=== PATIENT | female | born 1945 | race Caucasian/White ===

== ENCOUNTER 2017-07-28 02:44 | Emergency (ER) | payer MEDICARE, OTHER ==
[~2017-07-28] VITALS: Ht 172.7 cm; Wt 79.6 kg
--- OUTSIDE RECORDS SUMMARY | ~2017-07-28 | XMS | Clinical Summary ---
Demographics + + + | Address | [address] | | | [place] [address] | + + + | Home Phone | | + + + | Preferred Language | Unknown | + + + | Marital Status | Unknown | + + + | Gnosticism Affiliation | Unknown | + + + | Race | Unknown | + + + | Ethnic Group | Unknown | + + + Author + + + | Author | [facility] | | | and Cb | + + + | Organization | [facility] | | | and [place] | + + + | Address | Unknown | + + + | Phone | Unavailable | + + + Care Team Providers + +------+ + | Care Sales Operations Name | Role | Phone | + +------+ + PP | Unavailable | + +------+ + Allergies Not on File Current Medications Not on file Active Problems Not on file Social History + +-------+ +--------+------+ | Tobacco Use | Types | Packs/Day | Years | Date | | | | | Used | | + +-------+ +--------+------+ | Never Assessed | | | | | + +-------+ +--------+------+ + + + | Sex Assigned at | Date Recorded | | | | + + + | Not on file | | + + + Plan of Treatment + + + + + | Health Maintenance | Due Date | Last Done | Comments | + + + + + | Vaccine: | | | | | Dtap/Tdap/Td (1 - | 3 | | | | Tdap) | | | | + + + + + | BREAST CANCER | | | | | SCREENING (MAMM Q2 | 4 | | | | YEARS 50-74) | | | | + + + + + | COLON CANCER | | | | | SCREENING | 4 | | | | (COLONOSCOPY EVERY | | | | | 10 YEARS 50-75) | | | | + + + + + | Vaccine: | | | | | Pneumococcal 65+ | 9 | | | | Low/Medium Risk (1 | | | | | of 2 - PCV13) | | | | + + + + + | Vaccine: Influenza | | | | | (Season Ended) | 8 | | | + + + + + Results Not on filefrom Last 3 Months"
--- OUTSIDE RECORDS SUMMARY | ~2017-07-28 | XMS | Clinical Summary ---
Demographics + + + | Address | [address] | | | [place] [address] | + + + | Home Phone | | + + + | Preferred Language | Unknown | + + + | Marital Status | Unknown | + + + | Jew Affiliation | Unknown | + + + | Race | Unknown | + + + | Ethnic Group | Unknown | + + + Author + + + | Author | [facility] | | | and Cb | + + + | Organization | [facility] | | | and [place] | + + + | Address | Unknown | + + + | Phone | Unavailable | + + + Care Team Providers + +------+ + | Care Exchange Engineer Name | Role | Phone | + [...]
[~2017-07-28 02:44] MED LIST: ASPIRIN81 MG PO; LEVOTHYROXINE100 MCG PO
[2017-07-28] MEDS ORDERED: LOSARTAN POTASS50 MG PO (03:18)
[2017-07-28] MEDS ORDERED: OXYBUTYNIN CHLOR5 MG PO (03:19)
[2017-07-28] MEDS ORDERED: OMEPRAZOLE20 MG PO (03:58)
--- NOTE | 2017-07-29 13:27 | EKG ---
[facility] [address] [place] [address] Signed Sinus rhythm with 1st degree AV block Otherwise normal ECG When compared with ECG of 17-MAY-2016 16:42, No significant change was found Confirmed by ESTELA ALDANA MD ([id number]) on 07/29/2017 1:27:43 PM Electronically Signed By: ESTELA ALDANA MD 07/29/17 1327 PATIENT NAME: TONY LUA JACOB Electrocardiogram DATE OF : 41 PHYSICIAN: ESTELA ALDANA MD REPORT #: [id number] REPORT IS CONFIDENTIAL AND NOT TO BE RELEASED WITHOUT AUTHORIZATION
== END 2017-07-28 04:26 | disposition home or self-care (01) ==
LOC: ED 02:44
DX: R07.9 Chest pain, unspecified (principal); E03.9 Hypothyroidism, unspecified; Z87.891 Personal history of nicotine dependence; Z88.8 Allergy status to other drugs, medicaments and biological substances; Z79.899 Other long term (current) drug therapy; Z79.82 Long term (current) use of aspirin
CPT/HCPCS: 71045; 80053; 83690; 84484; 85025; 93005; 93010; 99284

== ENCOUNTER 2017-07-31 12:17 | Day surgery (SDC) | payer MEDICARE ==
[~2017-07-31] VITALS: Ht 154.9 cm; Wt 82.8 kg
[~2017-07-31 12:17] MED LIST changes: +LOSARTAN POTASS50 MG PO; +OMEPRAZOLE20 MG PO; +OXYBUTYNIN CHLOR5 MG PO
--- NOTE | 2017-07-31 15:23 | NUR ---
07/31/17 1523 Larisa Hernandez 1519-PATIENT ARRIVED TO PACU ON 2L NC O2 SAT 98% PATIENT REACTIVE. OPENS EYES TO VERBAL STIMULI DENIES PAIN OR NAUSEA. RR EVEN. ABDOMEN SOFT.
--- NOTE | 2017-08-01 12:51 | OR ---
[facility] [address] [place], [place] [address] Signed DATE OF OPERATION: 07/31/2017 SURGEON: Edith Jama MD PREOPERATIVE DIAGNOSES: History of diverticulosis, colonoscopy in 2003. POSTOPERATIVE DIAGNOSES: 1. Rectosigmoid polyp x1 (excised). 2. Sigmoid and left-sided diverticulosis. PROCEDURE: Total colonoscopy to cecum with cold morcellation polypectomy x1 and biopsy of sigmoid x1. ANESTHESIA: Intravenous sedation, fentanyl 100 mcg, Versed 6 mg. INDICATION: A 72-year-old white woman, patient of Dr. Knox, known to me from the past having undergone colonoscopy last in 2003, which showed diverticular changes. She is symptom-free at this time, but surveillance colonoscopy has been recommended. She understands the risks of bleeding, infection, perforation related to colonoscopy and wishes to proceed. FINDINGS: The prep was good. Complete colonoscopy was undertaken to the cecum. There were numerous diverticula of the sigmoid, mild inflammation of the mucosa, not much biopsies obtained. There was a small polyp of the rectosigmoid, which was excised with cold morcellation technique. The remaining colon was normal. DESCRIPTION OF PROCEDURE: The patient was brought to the endoscopy suite and placed in lateral decubitus position, given intravenous sedation to the point of slurred speech and nystagmus. Digital rectal examination was normal. An Olympus video colonoscope was passed in the rectum and manipulated throughout the colon. Abdominal wall stabilization was required to allow for passage to the cecum itself. The ileocecal valve and appendiceal orifice were normal. The scope was withdrawn after irrigation undertaken and careful inspection upon withdrawal of scope Electronically Signed By: EDITH JAMA MD 08/01/17 1251 PATIENT NAME: TONY LUA OPERATIVE REPORT DATE OF : 41 REPORT #: [id number] PHYSICIAN: EDITH JAMA MD PCP: RAUDEL KNOX DO REPORT IS CONFIDENTIAL AND NOT TO BE RELEASED WITHOUT AUTHORIZATION [facility] [address] [place], [place] [address] Signed showed no abnormality until the left colon where diverticula were once again seen and the mid sigmoid where edematous change of the mucosa and biopsy was obtained though no sign of colitis proper was noted. The scope was further withdrawn and at the rectosigmoid, a small sessile polyp was noted. This was affirmed as likely adenomatous based on narrow-band imaging. Biopsies of the lesion were undertaken, obliterating it completely. Retroflexed view of the rectum was otherwise normal. The scope was removed, and the patient was taken to the recovery room in good condition. Not mentioned previously was hemorrhoidal change of the rectum on retroflexed view. MD HARRY Ramirez/[place] /[id number] cc: Raudel Knox DO Copies: RAUDEL KNOX DO ~ Electronically Signed By: EDITH JAMA MD 08/01/17 1251 PATIENT NAME: TONY LUA OPERATIVE REPORT DATE OF : 41 REPORT #: [id number] PHYSICIAN: EDITH JAMA MD PCP: RAUDEL KNOX DO REPORT IS CONFIDENTIAL AND NOT TO BE RELEASED WITHOUT AUTHORIZATION
== END 2017-07-31 16:00 | disposition home or self-care (01) ==
LOC: OPS 12:17 → DS 12:17 → OPS 13:00 → DS 13:00 → OPS 16:00
PROVIDERS: Surgery
PROC: 0DBN8ZZ Excision of Sigmoid Colon, Via Natural or Artificial Opening Endoscopic (ICD-10-PCS; principal; 2017-07-31 13:00)
DX: Z12.11 Encounter for screening for malignant neoplasm of colon (principal); D12.7 Benign neoplasm of rectosigmoid junction; K57.30 Diverticulosis of large intestine without perforation or abscess without bleeding; Z88.8 Allergy status to other drugs, medicaments and biological substances; I10 Essential (primary) hypertension; E03.9 Hypothyroidism, unspecified; E66.3 Overweight; Z87.891 Personal history of nicotine dependence; Z98.890 Other specified postprocedural states; Z68.34 Body mass index [BMI] 34.0-34.9, adult
CPT/HCPCS: 88305; 99153; G0500; J2250; J3010; J7120

== ENCOUNTER 2017-09-09 22:24 | Emergency (ER) | payer MEDICARE, OTHER ==
[~2017-09-09] VITALS: Ht 154.9 cm; Wt 82.5 kg
--- NOTE | 2017-09-10 19:36 | EKG ---
[facility] [address] [facility] [place] [address] Signed Sinus bradycardia Otherwise normal ECG When compared with ECG of 28-JUL-2017 02:55, No significant change was found Confirmed by ESTELA ALDANA MD ([id number]) on 09/10/2017 7:35:52 PM Electronically Signed By: ESTELA ALDANA MD 09/10/17 1936 PATIENT NAME: TONY LUA Electrocardiogram DATE OF : 41 PHYSICIAN: ESTELA ALDANA MD REPORT #: [id number] REPORT IS CONFIDENTIAL AND NOT TO BE RELEASED WITHOUT AUTHORIZATION
== END 2017-09-10 01:09 | disposition home or self-care (01) ==
LOC: ED 22:24
DX: K82.8 Other specified diseases of gallbladder (principal); J44.9 Chronic obstructive pulmonary disease, unspecified; Z87.891 Personal history of nicotine dependence; Z88.8 Allergy status to other drugs, medicaments and biological substances; Z79.82 Long term (current) use of aspirin; Z79.899 Other long term (current) drug therapy
CPT/HCPCS: 76705; 80053; 83690; 84484; 85025; 93005; 93010; 96374; 99284; J2405

== ENCOUNTER 2019-11-15 04:50 | Inpatient (IN) | payer MEDICARE, OTHER ==
[~2019-11-15] VITALS: Ht 154.9 cm; Wt 82.1 kg
[~2019-11-15 04:50] MED LIST changes: +MOTRIN IB200 MG PO; +NORCO 5-325 TA1 EACH PO; +TYLENOL325 MG PO
--- NOTE | 2019-11-15 06:59 | NUR ---
0657 PT ARRIVED TO FLOOR AND WAS ABLE TO MOVE OVER TO BED SBA, SHE USED THE RESTROOM AND IS NOW IN BED. SHE IS ORIENTED TO CALL LIGHT AND VS TAKEN. PT DENIES NEEDS AT THIS TIME. LR IS INFUSING AND CALL LIGHT IS CLOSE.
--- NOTE | 2019-11-15 07:30 | NUR ---
PATIENT RESTING IN BED. WHITE BOARD UPTADED. PATIENT REFUSED TO WASH HER HANDS AND FACE. CALL LIGHT WITHIN REACH. NO OTHER NEEDS AT THIS TIME
--- NOTE | 2019-11-15 08:03 | EKG ---
[facility] [address] [facility] [place], [place] [address] Signed Atrial flutter with variable AV block Rightward axis Septal infarct (cited on or before 15-NOV-2019) Abnormal ECG When compared with ECG of 15-NOV-2019 05:08, (Unconfirmed) Serial changes of evolving Septal infarct present Confirmed by YAMEL GALLAGHER MD ([id number]) on 11/15/2019 8:03:00 AM Electronically Signed By: YAMEL GALLAGHER MD 11/15/19 08 PATIENT NAME: TONY LUA Electrocardiogram DATE OF : 41 PHYSICIAN: YAMEL GALLAGHER MD REPORT #: [id number] REPORT IS CONFIDENTIAL AND NOT TO BE RELEASED WITHOUT AUTHORIZATION
--- NOTE | 2019-11-15 08:23 | NUR ---
Pt alert and oriented x4. Pt denies chest pain at this time. Pt reports shortness of breath on exertion. TELE intact; pt in and out of Atrial flutter and NSR. Call light within reach. No needs at this time.
--- NOTE | 2019-11-15 08:57 | NUR ---
CALL LIGHT ANSWERED. PATIENT RESTING IN BED. PATIENT USES THE BATHROOM. ONE PERSON ASSISTING. PATIENT BACKS TO BED. VITAL SIGNS AND I&O DONE. CALL LIGHT WITHIN REACH. NO OTHER NEEDS AT THIS TIME
--- NOTE | 2019-11-15 12:08 | NUR ---
IV saline locked at this time. Standing weight obtained at this time as well.
--- NOTE | 2019-11-15 13:07 | NUR ---
PATIENT SITTING UP IN BED. VITAL SIGNS DONE BY RN. I&O DONE. CALL LIGHT WITHIN REACH. NO OTHER NEEDS AT THIS TIME
--- NOTE | 2019-11-15 13:50 | NUR ---
Pt sleeping, respirations are even and non labored. Pt has no distress noted. Tele intact; trending Atrial flutter, rate in the 70's. Personal supplies within reach.
[2019-11-15] MEDS ORDERED: LEVOTHYROXINE137 MCG PO (17:06)
--- NOTE | 2019-11-15 17:10 | NUR ---
PATIENT SITTING UP IN BED. VITAL SIGNS AND I&O DONE. CALL LIGHT WITHIN REACH. NO OTHER NEEDS AT THIS TIME
--- NOTE | 2019-11-15 17:23 | NUR ---
Pt resting in bed, respirations are even and non labored. Pt has no distress noted. Water filled. Personal supplies and call light within reach.
--- NOTE | 2019-11-15 18:18 | NUR ---
Pt A&OX4. SBA to BR. SOB with exertion. Tylenol in use for pain/elevated temp. Patient calls appropriately. Tele; trending in atrial flutter. Cardizem po in use.
--- NOTE | 2019-11-15 19:02 | NUR ---
SHIFT REPORT RECEIVED FROM DAYSAZFT JALIL HUYNH AT BEDSIDE. PT RESTING IN BED WITH EYES CLOSED. RR EVEN AND UNLABORED, NO DISTRESS NOTED. TELE#[address], RHYTHM A FLUTTER. CALL LIGHT IN REACH. WILL MONITOR.
--- NOTE | 2019-11-15 21:15 | NUR ---
ASSESSMENT COMPLETE, NO SCHEDULED MEDS AT THIS TIME. VSS, TELE#[address] RHYTHM A FLUTTER, PT DENIES CHEST PAIN BUT REPORTS SOB AT REST. PER PT, HX COPD, O2 SAT UPPER 90'S ON RA. LUNG SOUNDS CLEAR. NO DISTRESS, PT ABLE TO MAINTAIN CONVERSATION WITH STAFF. PT DENIES PAIN AND NAUSEA. IV SITE FLUSHED, WNL. I&O'S CHARTED. PT DENIES FURTHER NEEDS AT THIS TIME. CALL LIGHT IN REACH.
--- NOTE | 2019-11-15 22:26 | NUR ---
PT RESTING IN BED, RECENTLY RETURNED TO BED FROM BATHROOM. 100MLS OUTPUT NOTED. NO FURTHER NEEDS, CALL LIGHT IN REACH. PT APPEARS IN GOOD SPIRITS.
--- NOTE | 2019-11-15 23:41 | EKG ---
[facility] [address] [facility] [place] [address] Signed Atrial flutter with variable AV block Septal infarct (cited on or before 15-NOV-2019) Abnormal ECG When compared with ECG of 15-NOV-2019 05:10, Nonspecific T wave abnormality now evident in Inferior leads Confirmed by YAMEL GALLAGHER MD ([id number]) on 11/15/2019 11:41:34 PM Electronically Signed By: YAMEL GALLAGHER MD 11/15/19 2341 PATIENT NAME: TONY LUA Electrocardiogram DATE OF : 41 PHYSICIAN: YAMEL GALLAGHER MD REPORT #: [id number] REPORT IS CONFIDENTIAL AND NOT TO BE RELEASED WITHOUT AUTHORIZATION
--- NOTE | 2019-11-16 00:55 | NUR ---
VS AND I&O'S DONE. SCHEDULED CARDIAC MED GIVEN (SEE EMAR). NO FURTHER NEEDS AT THIS TIME, CALL LIGHT IN REACH.
--- NOTE | 2019-11-16 03:10 | NUR ---
PT RESTING IN BED WITH EYES CLOSED. RESPIRATIONS EVENA DN UNLABORED. TELE#4 INTACT, RHYTHM CONTINUES TO TREND A FLUTTER. NO DISTRESS NOTED, PT APPEARS COMFORTABLE. CALL LIGHT IN REACH.
--- NOTE | 2019-11-16 06:21 | NUR ---
PT HAD AN UNEVENTFUL NIGHT, SLEPT FOR MOST OF SHIFT. A/OX4, INDEPENDENT IN ROOM AND CALLS APPROPERIATELY. TELE#[address], TRENDING A FLUTTER. NO CHEST PAIN REPORTED, SOB ON EXERTION. VOIDING QS. CLEAR LIQUID DIET, NO NAUSEA REPORTED.
--- NOTE | 2019-11-16 06:55 | NUR ---
CCU CALLED ABOUT PT'S HEART RATE JUMPING TO 130'S. UPON ENTERING THE ROOM PT WAS STRAIGHTENING OUT HER BED AND STATES SHE JUST USED THE BATHROOM. TEODORO JIMENES IS IN ROOM WITH HER AT THIS TIME. CALL LIGHT IS CLOSE.
--- NOTE | 2019-11-16 06:57 | NUR ---
JHOANA SENT TO DR GALLAGHER REGARDING PT'S THYROID MEDICATION SHE TAKES ATHOME. ASSESSMENT COMPLETE, NO NEW CAHNGES. VSS, SCHEDULED AM CARDIAC MED GIVEN ALONG WITH PRN TYLENOL FOR HEADACHE. PT DENIES CHEST PAIN. CALL LIGHT IN REACH.
--- NOTE | 2019-11-16 07:35 | NUR ---
Pt sitting up in bed, alert and oriented x4. Pt denies pain at this time. Personal supplies and call light within reach.
--- NOTE | 2019-11-16 07:45 | NUR ---
PATIENT RESTING IN BED. WHITE BOARD UPDATED. PATIENT REFUSED TO TAKE A SHOWER TODAY. CALL LIGHT WITHIN REACH. NO OTHER NEEDS AT THIS TIME
--- NOTE | 2019-11-16 10:42 | NUR ---
PATIENT RESTING WITH EYES CLOSED, DAUGHTER IN TO VISIT. PATIENT NOW AWAKE AND SITTING AT SIDE OF BED. BREAKFATS AT BEDSIDE.NO URINE OUTPUT YET, WILL NOTIFY RN. CALL LIGHT IN REACH
--- NOTE | 2019-11-16 13:29 | NUR ---
PATIENT RESTING IN BED. DAUGHTER IN ROOM. VITAL SIGNS AND I&O DONE. CALL LIGHT WITHIN REACH. NO OTHER NEEDS AT THIS TIME
--- NOTE | 2019-11-16 15:12 | NUR ---
Pt resting in bed, eyes closed, respirations even and non labored. TELE remains intact; trending atrial flutter, rate 60-70 bpm.
--- NOTE | 2019-11-16 17:05 | NUR ---
PATIENT SITTING UP IN BED. VITAL SIGNS AND I&O DONE. SETS UP TABLE FOR DINNER. CALL LIGHT WITHIN REACH. NO OTHER NEEDS AT THIS TIME
--- NOTE | 2019-11-16 19:10 | NUR ---
SHIFT REPORT RECEIVED FROM DAYSAZFT JALIL HUYNH AT BEDSIDE. PT AWAKE AND RESTING IN BED, DENIES NEEDS. CALL LIGHT IN REACH. BOARD UPDATED.
--- NOTE | 2019-11-16 21:21 | NUR ---
ASSESMENT COMPLETE, SCHEDULED CARDIAC MED GIVEN (SEE EMAR). VS AND I&O'S DONE. PT A/OX4 AND INDEPENDENT IN ROOM. DENIES PAIN AND NAUSEA. ALSO DENIES CHEST PAIN, REPORTS SOB WITH EXERTION. LUNG SOUNDS CLEAR, ON RA. NO FURTHER NEEDS, CALL LIGHT IN REACH.
--- NOTE | 2019-11-16 23:15 | NUR ---
PT RESTING IN BED, DENIES FURTHER NEEDS. CALL LIGHT IN REACH. RR EVEN AND UNLABORED.
--- NOTE | 2019-11-17 02:45 | NUR ---
PT RESTING IN BED WITH EYES CLOSED, RR EVEN AND UNLABORED. NO DISTRESS NOTED. CALL LIGHT IN REACH.
--- NOTE | 2019-11-17 04:14 | NUR ---
ASSESSMENT COMPLETE, NO NEW CHANGES OR CONCERNS. PT AWAKE AND RESTING IN BED HOB ELEVATED. LUNG SOUNDS CLEAR, O2 SAT 94% RA. HR 70, PT DENIES CHEST PAIN. CALL LIGHT IN REACH.
--- NOTE | 2019-11-17 04:41 | NUR ---
PT HAD AN UNEVENTFUL NIGHT, SLEPT FOR MOST OF SHIFT. VSS, INDEPENDENT IN ROOM. 2GM SODIUM DIET, TOLERATING WELL. NO NAUSEA REPORTED. PAIN MEDS NOT NEEDED THIS SHIFT. VOIDING QS, NO BM. SL, IV SITE WNL.
--- NOTE | 2019-11-17 05:22 | NUR ---
VSS AND I&O'S DONE. DAILY WEIGHT ALSO COMPLETE. NO FURTHER NEEDS, CALL LIGHT IN REACH.
--- NOTE | 2019-11-17 05:42 | NUR ---
VITALS, I&OS AND WEIGHT DONE AND CHARTED. FRESH ICE WATER GIVEN. GARBAGES EMPTIED. BEDSIDE TABLE AND CALL LIGHT IN REACH.
--- NOTE | 2019-11-17 07:43 | NUR ---
Pt resting in bed, eyes closed, respirations even and non labored. Pt has no distress noted. Personal supplies and call light within reach.
--- NOTE | 2019-11-17 09:17 | NUR ---
PATIENT UP TO SHOWER, IND. NEW GOWN PROVIDED. LINENS CHANGED. KIRK CARE, ORAL CARE, SKIN CARE DONE. PATIENT BACK TO BED, IND. CALL LIGHT IN REACH. NO FURTHER NEEDS AT THIS TIME.
--- NOTE | 2019-11-17 10:43 | NUR ---
PT ALERT, ORIENTED AND SITTING ON SIDE OF BED. PT SAID THIS IS SOMETHING NEW THAT TO HER KNOWLEDGE SHE HAS NOT HAD BEFORE. PT WENT ON THE SHARE WITH ME THAT SHE HAS LOST BOTH HER AND SON IN THE LAST FEW MONTHS. PT APPEARS RATHER STOIC SHE SHARED HER STORY. GAVE COMFORT, PT REQUESTED PRAYER. WILL FOLLOW NEEDED. SHARED WITH DR ALDANA INFO REGARDING HER LOSSES
--- NOTE | 2019-11-17 10:56 | NUR ---
PATIENT IN BED RESTING WITH EYES CLOSED. CALL LIGHT IN REACH. NO FURTHER NEEDS AT THIS TIME.
--- NOTE | 2019-11-17 14:12 | NUR ---
PATIENT SITTING UP IN BED, DAUGHTER IN ROOM. PATIENT COMPLAINED OF IV SIGHT BEING TENDER AND PUFFY, RN NOTIFIED. CALL LIGHT IN REACH. NO FURTHER NEEDS AT THIS TIME.
--- NOTE | 2019-11-17 14:15 | NUR ---
Spoke with Bibi and daughter Enma. Pt has been having increased symptoms of sob. LIves in a trilevel home with her daughter Lizbeth, who is out of town for the week. Pt does not use any DME. Denies issues with SDOH, aware of [employer], but states she would not qualify. Daughters are very attentive and pt states they will assist her with any needs. Pt is aware her trilevel home is not practical, but does not want to move. Daughter states if she reaches a point where she can not go up or down the stairs she will move in with them.
--- NOTE | 2019-11-17 15:29 | NUR ---
NEW IV PLACED LEFT WRIST IV SITE INFILTRATED. PT TOLERTED WELL.
--- NOTE | 2019-11-17 17:48 | NUR ---
CALENDER LET OFF HELPER reported pt's heart rate is elevated and pt reports she feels shaky. In to asssess pt; heart rate auscultated at 120bpm and sounds irregular. Pt reports she was eating her dinner and started feeling more short of breath and a bit shaky. Oxygen saturation is 94% on room air. Pt denies chest pain. Dr. Landon notified. Order obtained from Dr. Landon to check vitals again in one hour. Pt recently had a duoneb as well. No acute needs, patient able to carry on with a long conversation with this RN. Call light wtthin jericho.
--- NOTE | 2019-11-17 19:15 | NUR ---
RECEIVED REPORT FROM JALIL HUYNH. pt RESTING IN BED. NO REQUESTS AT THIS TIME. WHITEBOARD UPDATED. CALL LIGHT WITHIN REACH.
--- NOTE | 2019-11-17 19:29 | NUR ---
NOTED TELE 4 HR OF 130. IN TO ASSESS. pt RESTING IN BED. REPORTED SHE HAD JUST AMBULATED TO THE BATHROOM AND BACK TO BED. HR NOW 110'S. pt RESTING IN BED. CALL LIGHT WITHIN REACH.
--- NOTE | 2019-11-17 21:45 | NUR ---
IN TO DO ASSESSMENT AND MEDICATIONS. DISCUSSED THE PLAN FOR THE NIGHT. DENIES PAIN AND SOB AT THIS TIME. ASSESSMENT DONE. MEDICATION GIVEN (SEE MAR). NO FURTHER REQUESTS AT THIS TIME. CALL LIGHT WITHIN REACH.
--- NOTE | 2019-11-17 23:37 | NUR ---
ROUNDED ON pt. RESTING WITH EYES CLOSED, RESPIRATIONS REGULAR AND UNLABORED. CALL LIGHT WITHIN REACH.
--- NOTE | 2019-11-18 01:55 | NUR ---
NOTED ALARM ON TELE MONITOR. ROUNDED ON pt. RESTING IN BED WITH EYES CLOSED, ON RIGHT SIDE. RESPIRATIONS REGULAR AND UNLABORED. CALL LIGHT WITHIN REACH. HR CONTINUES TO FLUCTUATE BETWEEN 80'S AND 140'S. HIGH RATE IS NOT SUSTAINED.
--- NOTE | 2019-11-18 03:51 | NUR ---
ROUNDED ON pt. RESTING IN BED WITH EYES CLOSED, RESPIRATIONS REGULAR AND UNLABORED. CALL LIGHT WITHIN REACH. TELE IN A FLUTTER HR 80.
--- NOTE | 2019-11-18 05:40 | NUR ---
pt AWAKE UP TO VOID AND BACK TO BED INDEPENDENT. DAILY WEIGHT, VITALS AND I&O RECORDED. pt REPORTED "I FEEL BETTER TODAY THAN I HAVE SINCE I GOT HERE." ASSESSMENT DONE. MEDICAITON GIVEN (SEE MAR). NO FURTHER REQUESTS AT THIS TIME. CALL LIGHT WITHIN REACH.
--- NOTE | 2019-11-18 07:54 | NUR ---
Pt awake, alert and oriented x4. Pt has no distress. Personal supplies and call light within reach.
--- NOTE | 2019-11-18 08:36 | NUR ---
PATIENT AWAKE AND EATING BREAKFAST NO FURTHER NEEDS AT THIS TIME.
--- NOTE | 2019-11-18 09:15 | NUR ---
PATIENT VITALS SIGNS AND I&O'S DOCUMENTED. NO FURTHER NEEDS AT THIS TIME.
--- NOTE | 2019-11-18 11:09 | NUR ---
PATIENT HAD AM CARE DONE. PATIENT WASHED FACE, AND ORAL CARE IS COMPLETED. NO FURTHER NEEDS AT THIS TIME.
[2019-11-18] MEDS ORDERED: DILTIAZEM 24HR240 M1 PO (11:29)
[2019-11-18] MEDS ORDERED: PREDNISONE20 MG PO (11:31)
[2019-11-18] MEDS ORDERED: WARFARIN SODIUM5 MG PO (11:39)
--- NOTE | 2019-11-18 12:08 | NUR ---
DISCHARGE VITALS DOCUMENTED.
--- NOTE | 2019-11-18 12:15 | NUR ---
PT READY FOR DISCHARGE. DISCHARGE INSTRUCTIONS REVIEWED WITH PT. PT VERBALIZES UNDERSTANDING. PT VERBALIZES UNDERSTANDING OF WARFARIN, FOLLOW UP LABS AND FOLLOW UP APPOINTMENT WITH DR. HARTLEY. PT WAITING TO TALK WITH PHARMACIST. NO ADDITIONAL REQUESTS OR COMPLAINTS AT THIS TIME. PT STATES DAUGHTER/RIDE WILL ARRIVE AT 1300. CALL LIGHT WITHIN REACH. BED RAILS UP.
[2019-11-18] MEDS ORDERED: ELIQUIS5 MG PO (13:03)
--- NOTE | 2019-11-18 13:13 | NUR ---
PT REPORTS HAVING CONCERNS ABOUT TAKING WARFARIN AT THIS TIME, SHE REQUESTS TO HAVE THE ELIQUIS ORDER, SHE REFERED TO [facility], EDUCATION PROVIDED, BOONE FROM PHARMACY TO COME RE-ADDRESS HER CONCERNS AND COMPARISON OF THE TWO MEDICATIONS, WITH PT AND HER DAUGHTER.
--- NOTE | 2019-11-18 13:30 | NUR ---
PT STATES SHE DOES NOT WANT TO TAKE WARFARIN AFTER TALKING WITH PHARMACIST. MD PLACES ORDER FOR ELEQUIS. PHARMACIST TO BEDSIDE TO TALK WITH PT AGAIN ABOUT ELEQUIS. NEW DISCHARGE INSTRUCTIONS GIVEN TO AND REVIEWED WITH PT. PT VERBALIZES UNDERSTANDING AND STATES SHE IS HAPPY WITH THE NEW PLAN. PT CONTINUES TO DECLINE NEBULIZER TREATEMENTS. PT REMINDED SHE CAN ALWAYS CHANGE HER MIND AND TO BE SURE TO GO TO HER FOLLOW UP APPOINTMENTS. PT VERBALIZES UNDERSTANDING OF MEDICATION CHANGES, FOLLOW UP APPOINTMENTS, AND DISCHARGE INSTRUCTIONS. PT DRESSES SELF. VITALS TAKEN. IV DC'D PER PROTOCOL. PT TRANSFERES SELF TO WHEELCHAIR. DAUGHTER PRESENET FOR REVIEW OF NEW MEDICATIONS AND DISCHARGE INSTRUCTIONS. PT WHEELED FROM UNIT. NO ADDITIONAL CONERNS OR REQUESTS.
--- NOTE | 2019-11-18 14:25 | NUR ---
PT SITTING UP IN BED, ALERT, ORIENTED AND VISITING WITH HER DAUGHTER THAT IS HERE TO TAKE PT HOME FOLLOWING DC. PT WAITING FOR PHARMACY, AND THANKED ME FOR VISITING. GAVE BLESSZAFAR
== END 2019-11-18 13:45 | disposition home or self-care (01) | DRG 309 ==
LOC: ED 04:50 → MS 04:52
PROVIDERS: ADMIT Internal Medicine
DX: I48.92 Unspecified atrial flutter (principal); J44.1 Chronic obstructive pulmonary disease with (acute) exacerbation; Z20.828 Contact with and (suspected) exposure to other viral communicable diseases; I10 Essential (primary) hypertension; N32.81 Overactive bladder; E89.0 Postprocedural hypothyroidism; I27.20 Pulmonary hypertension, unspecified; I51.7 Cardiomegaly; Z79.899 Other long term (current) drug therapy; Z79.82 Long term (current) use of aspirin; Z85.850 Personal history of malignant neoplasm of thyroid; Z87.891 Personal history of nicotine dependence; Z88.8 Allergy status to other drugs, medicaments and biological substances; Z88.5 Allergy status to narcotic agent
CPT/HCPCS: 36415; 71045; 80048; 80053; 83735; 83880; 84100; 84439; 84443; 84484; 85025; 85610; 93005; 93010; 93306; 94640; 94667; 94668; 96374; 99285-25; C9803; J1650; J2930; J7121

== ENCOUNTER 2020-01-21 10:21 | Emergency (ER) | payer MEDICARE ==
[~2020-01-21] VITALS: Ht 154.9 cm; Wt 82.1 kg
[~2020-01-21 10:21] MED LIST changes: +DILTIAZEM 24HR240 M1 PO; +ELIQUIS5 MG PO; +LEVOTHYROXINE137 MCG PO; +PREDNISONE20 MG PO; +WARFARIN SODIUM5 MG PO
== END 2020-01-21 11:15 | disposition home or self-care (01) ==
LOC: ED 10:21
DX: S80.12XA Contusion of left lower leg, initial encounter (principal); W01.198A Fall on same level from slipping, tripping and stumbling with subsequent striking against other object, initial encounter; E03.9 Hypothyroidism, unspecified; J44.9 Chronic obstructive pulmonary disease, unspecified; Z87.891 Personal history of nicotine dependence; Z88.8 Allergy status to other drugs, medicaments and biological substances; Z88.5 Allergy status to narcotic agent; Z79.899 Other long term (current) drug therapy; Z79.52 Long term (current) use of systemic steroids
CPT/HCPCS: 73590; 99283-25

== ENCOUNTER 2020-04-20 22:45 | Emergency (ER) | payer MEDICARE ==
[~2020-04-20] VITALS: Ht 154.9 cm; Wt 85.3 kg
[2020-04-20] MEDS ORDERED: METOPROLOL SUCC25 MG PO (23:05)
[2020-04-20] MEDS ORDERED: ATROVENT HFA12.9 GM INH (23:05)
== END 2020-04-20 23:59 | disposition home or self-care (01) ==
LOC: ED 22:45
DX: S60.212A Contusion of left wrist, initial encounter (principal); W22.8XXA Striking against or struck by other objects, initial encounter; E03.9 Hypothyroidism, unspecified; I48.92 Unspecified atrial flutter; J44.9 Chronic obstructive pulmonary disease, unspecified; Z88.5 Allergy status to narcotic agent; Z88.8 Allergy status to other drugs, medicaments and biological substances; Z79.899 Other long term (current) drug therapy
CPT/HCPCS: 73110; 99283-25

== ENCOUNTER 2022-02-04 12:48 | Emergency (ER) | payer MEDICARE ==
[~2022-02-04] VITALS: Ht 154.9 cm; Wt 85.3 kg
[~2022-02-04 12:48] MED LIST changes: +ATROVENT HFA12.9 GM INH; +METOPROLOL SUCC25 MG PO
== END 2022-02-04 14:41 | disposition home or self-care (01) ==
LOC: ED 12:48
DX: J44.1 Chronic obstructive pulmonary disease with (acute) exacerbation (principal); I48.92 Unspecified atrial flutter; E03.9 Hypothyroidism, unspecified; Z87.891 Personal history of nicotine dependence; Z88.8 Allergy status to other drugs, medicaments and biological substances; Z88.5 Allergy status to narcotic agent
CPT/HCPCS: 94664; 99283

== ENCOUNTER 2022-07-21 23:43 | Emergency (ER) | payer MEDICARE ==
[~2022-07-21] VITALS: Ht 154.9 cm; Wt 85.3 kg
--- OUTSIDE RECORDS SUMMARY | 2022-07-21 23:47 | XMS ---
PreManage Notification: TONY LUA Security Stand Grinder Events No recent Security Events currently on file CRITERIA MET - ANALIP CARE PROVIDERS KAYLEN ROGERS Physician Night Assistant Current PHONE: [phone] Soniya has no Care Guidelines for this patient. EJitendra VISIT COUNT (12 MO.) 2 JODEE Gonzalez TOTAL 2 NOTE: Visits indicate total known visits. ED/UCC VISIT TRACKING (12 MO.) 07/21/2022 23:44 JODEE [facility] [place] TYPE: Emergency COMPLAINT: - SORE THROAT 02/04/2022 12:48 [facility]E [facility] [place] TYPE: Emergency COMPLAINT: - FREQUENT CHOKING DIAGNOSES: - Allergy status to narcotic agent - Allergy status to other drugs, medicaments and biological substances - Chronic obstructive pulmonary disease with (acute) exacerbation - Hypothyroidism, unspecified - Personal history of nicotine dependence - Shortness of breath - Unspecified atrial flutter INPATIENT VISIT TRACKING (12 MO.) No inpatient visits to display in this time frame [email or web address]
[2022-07-21] MEDS ORDERED: DICLOXACILLIN500 MG PO (23:51)
[2022-07-21] MEDS ORDERED: PREGABALIN50 MG PO (23:52)
[2022-07-21] MEDS ORDERED: GABAPENTIN300 MG PO (23:52)
[2022-07-22] MEDS ORDERED: DOXYCYCLINE HY100 MG PO (00:07)
[2022-07-22 00:18] VITALS: BP 149/90
== END 2022-07-22 00:19 | disposition home or self-care (01) ==
LOC: ED 23:43
DX: J02.9 Acute pharyngitis, unspecified (principal); J44.9 Chronic obstructive pulmonary disease, unspecified; Z87.891 Personal history of nicotine dependence; Z88.8 Allergy status to other drugs, medicaments and biological substances; Z88.5 Allergy status to narcotic agent; Z79.01 Long term (current) use of anticoagulants; Z79.890 Hormone replacement therapy; Z79.899 Other long term (current) drug therapy
CPT/HCPCS: 99282

== ENCOUNTER 2022-09-23 03:21 | Inpatient (IN) | payer MEDICARE ==
[~2022-09-23] VITALS: Ht 154.9 cm; Wt 69.0 kg
--- OUTSIDE RECORDS SUMMARY | ~2022-09-23 | XMS | Continuity of Care Document ---
Demographics + + + | Address | [facility] [address] | | | [place] [address] | + + + | Preferred Language | Unknown | + + + | Marital Status | | + + + | Congregational Affiliation | Unknown | + + + | Race | White | + + + | Ethnic Group | Not or | + + + Author + + + | Author | [facility] | + + + | Organization | [facility] | + + + | Address | [address] | | | [place] [address] | + + + | Phone | | + + + Care Team Providers + + + + | Care Representative Personal Service Name | Role | Phone | + + + + Unavailable | Unavailable | + + + + Unavailable | Unavailable | + + + + Unavailable | Unavailable | + + + + Allergies and Intolerances + + + + + | date | description | facility | type | + + + + + | (no date) | Lisinopril | [facility] (unknown[facility] | | + + + + + | (no date) | Mild | [facility] (unknown) [facility] | | + + + + + | (no date) | Rash | [facility] (unknown) [facility] | [facility] Hospital | | + + + + + | (no date) | Lisinopril | [facility] (unknown) [facility] | | | Hospital | | + + + + + | (no date) | Diltiazem | [facility] | (unknown) | | | | Hospital | | + + + + + | (no date) | Diltiazem | [facility] (unknown) | | | | Hospital | | + + + + + | (no date) | Oxycodone | [facility] (unknown) [facility] | | [facility] Hospital | | + + + + + | (no date) | Oxycodone | [facility] (unknown) | | | | Hospital | | + + + + + | (no date) | Oxycodone | [facility] (unknown) | | | | Hospital | | + + + + + | (no date) | Lisinopril | [facility] | (unknown) | | | | Hospital | | + + + + + | (no date) | Diltiazem | [facility] (unknown[facility] | | | | [facility] | | + + + + + | (no date) | lisinopril | [facility] | (unknown) | + + + + + | (no date) | oxycodone | [facility] | (unknown) | + + + + + | (no date) | diltiazem | [facility] | (unknown) | + + + + + Encounters No information. Functional Status No information. Immunizations No information. Medications + + + + | date | description | facility | + + + + | 2022-09-16 00:00 | Lidocaine | [facility] | + + + + | 2022-09-16 00:00 | Lidocaine | [facility] | + + + + | 2019-11-18 00:00 | APIXABAN | [facility] | + + + + | 2019-11-18 00:00 | APIXABAN | [facility] | + + + + | 2022 00:00 | DOXYCYCLINE HYCLATE | [facility] | + + + + | 2022 00:00 | DOXYCYCLINE HYCLATE | [facility] | + + + + | 2022 00:00 | DICLOXACILLIN SODIUM | [facility] | + + + + | 2022-09-16 00:00 | DICLOXACILLIN SODIUM | [facility] | + + + + | 2022-09-22 00:00 | DICLOXACILLIN SODIUM | [facility] | + + + + | 2017-07-28 00:00 | OMEPRAZOLE | [facility] | + + + + | 2017-07-28 00:00 | OMEPRAZOLE | [facility] | + + + + | 2022 00:00 | GABAPENTIN | [facility] | + + + + | 2022-09-16 00:00 | GABAPENTIN | [facility] | + + + + | 2022-09-22 00:00 | GABAPENTIN | [facility] | + + + + | 2019-11-18 00:00 | predniSONE | [facility] | + + + + | 2019-11-18 00:00 | predniSONE | [facility] | + + + + | 2022-02-04 00:00 | ASPIRIN | [facility] | + + + + | 2022 00:00 | ASPIRIN | [facility] | + + + + | 2022-09-16 00:00 | ASPIRIN | [facility] | + + + + | 2022-09-22 00:00 | ASPIRIN | [facility] | + + + + | 2022 00:00 | Pregabalin | [facility] | + + + + | 2022-09-16 00:00 | Pregabalin | [facility] | + + + + | 2022-09-22 00:00 | Pregabalin | [facility] | + + + + | 2019-11-18 00:00 | DILTIAZEM HCL | [facility] | + + + + | 2019-11-18 00:00 | DILTIAZEM HCL | [facility] | + + + + | 2022-09-16 00:00 | HYDROCODONE | [facility] | | | BIT/ACETAMINOPHEN | | + + + + | 2022-09-16 00:00 | HYDROCODONE | [facility] | | | BIT/ACETAMINOPHEN | | + + + + | 2022-02-04 00:00 | OXYBUTYNIN CHLORIDE | [facility] | + + + + | 2022 00:00 | OXYBUTYNIN CHLORIDE | [facility] | + + + + | 2022-09-16 00:00 | OXYBUTYNIN CHLORIDE | [facility] | + + + + | 2022-09-22 00:00 | OXYBUTYNIN CHLORIDE | [facility] | + + + + | 2022-02-04 00:00 | METOPROLOL SUCCINATE | [facility] | + + + + | 2022 00:00 | METOPROLOL SUCCINATE | [facility] | + + + + | 2022-09-16 00:00 | METOPROLOL SUCCINATE | [facility] | + + + + | 2022-09-22 00:00 | METOPROLOL SUCCINATE | [facility] | + + + + | 2022-09-22 00:00 | MORPHINE SULFATE | [facility] | + + + + | 2022-02-04 00:00 | LEVOTHYROXINE SODIUM | [facility] | + + + + | 2022 00:00 | LEVOTHYROXINE SODIUM | [facility] | + + + + | 2022-09-16 00:00 | LEVOTHYROXINE SODIUM | [facility] | + + + + | 2022-09-22 00:00 | LEVOTHYROXINE SODIUM | [facility] | + + + + | 2022-02-04 00:00 | LOSARTAN POTASSIUM | [facility] | + + + + | 2022 00:00 | LOSARTAN POTASSIUM | [facility] | + + + + | 2022-09-16 00:00 | LOSARTAN POTASSIUM | [facility] | + + + + | 2022-09-22 00:00 | LOSARTAN POTASSIUM | [facility] | + + + + Problems + + + + | date | description | facility | + + + + | 2015-08-08 00:00 | Syncope | [facility] | + + + + | 2015-08-08 00:00 | Syncope | [facility] | + + + + | 2015-08-09 00:00 | Follow up | [facility] | + + + + | 2015-08-09 00:00 | Follow up | [facility] | + + + + | 2016-05-17 00:00 | Vomiting | [facility] | + + + + | 2016-05-17 00:00 | Vomiting | [facility] | + + + + | 2017-07-28 00:00 | Nonspecific chest pain | [facility] | + + + + | 2017-07-28 00:00 | Nonspecific chest pain | [facility] | + + + + | 2017-09-10 00:00 | Abdominal pain | [facility] | + + + + | 2017-09-10 00:00 | Abdominal pain | [facility] | + + + + | 2018-03-18 00:00 | Nonspecific abdominal pain | [facility] | | | | | + + + + | 2018-03-18 00:00 | Nonspecific abdominal pain | [facility] | | | | | + + + + | 2019-11-15 00:00 | Atrial flutter | [facility] | + + + + | 2019-11-15 00:00 | Atrial flutter | [facility] | + + + + | 2020-01-21 00:00 | Hematoma | [facility] | + + + + | 2020-01-21 00:00 | Hematoma | [facility] | + + + + | 2020-04-20 00:00 | Contusion of left wrist | [facility] | + + + + | 2020-04-20 00:00 | Contusion of left wrist | [facility] | + + + + | 2022-02-04 00:00 | Acute exacerbation of | [facility] | | | chronic obstructive | | | | pulmonary disease | | + + + + | 2022-02-04 00:00 | Acute exacerbation of | [facility] | | | chronic obstructive | | | | pulmonary disease | | + + + + | 2022-09-16 00:00 | Compression fracture | [facility] | + + + + | 2022-09-16 00:00 | Compression fracture | [facility] | + + + + | 2022-09-16 00:00 | Lung mass | [facility] | + + + + | 2022-09-16 00:00 | Lung mass | [facility] | + + + + | 2022-09-16 08:21 | Essential (primary) | [facility] | | | hypertension | | + + + + | 2022-09-16 08:21 | CHRONIC OBSTRUCTIVE | [facility] | | | PULMONARY DISEASE, | | | | UNSPECIFIED | | + + + + | 2022-09-16 08:21 | LOW BACK PAIN, UNSPECIFIED | [facility] | | | | | + + + + | 2022-09-16 08:21 | OTHER NONSPECIFIC ABNORMAL | [facility] | | | FINDING OF LUNG FIELD | | + + + + | 2022-09-16 08:21 | UNSP FRACTURE OF FOURTH | [facility] | | | LUMBAR VERTEBRA, INIT FOR | | + + + + | 2022-09-16 08:21 | UNSPECIFIED FALL, INITIAL | [facility] | | | ENCOUNTER | | + + + + | 2022-09-16 08:21 | HORMONE REPLACEMENT | [facility] | | | THERAPY | | + + + + | 2022-09-16 08:21 | OTHER WEIGHT TRAINING INSTRUCTOR (CURRENT) | [facility] | | | DRUG THERAPY | | + + + + | 2022-09-16 08:21 | PERSONAL HISTORY OF | [facility] | | | NICOTINE DEPENDENCE | | + + + + | 2022-09-16 08:21 | ALLERGY STATUS TO NARCOTIC | [facility] | | | AGENT STATUS | | + + + + | 2022-09-16 08:21 | ALLERGY STATUS TO OTH | [facility] | | | DRUG/MEDS/BIOL SUBST STATUS | | | | | | + + + + | 2022-09-21 15:30 | PERSONAL HISTORY OF | [facility] | | | NICOTINE DEPENDENCE | | + + + + | 2022-09-22 00:00 | Pathological fracture of | [facility] | | | lumbar vertebra | | + + + + Procedures No information. Results/Labs +--------+--------+ + +---------+--------+ + | test | date | author | facility | value | unit | | | | | | | | | interpreta | | | | | | | | tion | +--------+--------+ + +---------+--------+ + + + | Result panel 1 | + + + + + + +---------+ + + | (unknown) | (no date) | (unknown) | [facility]no | [facility]units | (unknown) | | | [facility] value[facility] | [facility] | [facility] | | | | + + + + +---------+ + + + + | Result panel 2 | + + + + + + +---------+ + + | (unknown) | (no date) | (unknown) | [facility] | (no | (units | (unknown) | | | | [facility] | value) | unknown) | | | | [facility] | | | | + + + + +---------+ + + + + | Result panel 3 | + + + + + + +---------+ + + | (unknown) | (no date) | (unknown) | [facility] | (no | (units | (unknown) | | | | [facility] | value) | unknown) | | | | [facility] | | | | + + + + +---------+ + + + + | Result panel 4 | + + + + + + +---------+ + + | (unknown) | (no date) | (unknown) | [facility] | (no | (units | (unknown) | | | | [facility] | value) | unknown) | | | | [facility] | | | | + + + + +---------+ + + + + | Result panel 5 | + + + + + + +---------+ + + | (unknown) | (no date) | (unknown) | [facility] | (no | (units | (unknown) | | | | [facility] | value) | unknown) | | | | | [facility] | | | | + + + + +---------+ + + + + | Result panel 6 | + + + + + + +---------+ + + | (unknown) | (no date) | (unknown) | [facility] | (no | (units | (unknown) | | | | | [facility] | value) | unknown) | | | | | [facility] | | | | + + + + +---------+ + + + + | Result panel 7 | + + + + + + +---------+ + + | (unknown) | (no date) | (unknown) | [facility] | (no | (units | (unknown) | | | | | [facility] | value) | unknown) | | | | | [facility] | | | | + + + + +---------+ + + + + | Result panel 8 | + + + + + + +---------+ + + | (unknown) | (no date) | (unknown) | [facility] | (no | (units | (unknown) | | | | | [facility] | value) | unknown) | | | | | [facility] | | | | + + + + +---------+ + + + + | Result panel 9 | + + + + + + +---------+ + + | (unknown) | (no date) | (unknown) | [facility] | (no | (units | (unknown) | | | | | [facility] | value) | unknown) | | | | | [facility] | | | | + + + + +---------+ + + + + | Result panel 10 | + + + + + + +---------+ + + | (unknown) | (no date) | (unknown) | [facility] | (no | (units | (unknown) | | | | | [facility] | value) | unknown) | | | | | [facility] | | | | + + + + +---------+ + + + + | Result panel 11 | + + + + + + +---------+ + + | (unknown) | (no date) | (unknown) | [facility] | (no | (units | (unknown) | | | | | [facility] | value) | unknown) | | | | | [facility] | | | | + + + + +---------+ + + + + | Result panel 12 | + + + + + + +---------+ + + | (unknown) | (no date) | (unknown) | [facility] | (no | (units | (unknown) | | | | | [facility] | value) | unknown) | | | | | [facility] | | | | + + + + +---------+ + + + + | Result panel 13 | + + + + + + +---------+ + + | (unknown) | (no date) | (unknown) | [facility] | (no | (units | (unknown) | | | | | [facility] | value) | unknown) | | | | | [facility] | | | | + + + + +---------+ + + + + | Result panel 14 | + + + + + + +---------+ + + | (unknown) | (no date) | (unknown) | [facility] | (no | (units | (unknown) | | | | | [facility] | value) | unknown) | | | | | [facility] | | | | + + + + +---------+ + + + + | Result panel 15 | + + + + + + +---------+ + + | (unknown) | (no date) | (unknown) | [facility] | (no | (units | (unknown) | | | | | [facility] | value) | unknown) | | | | | [facility] | | | | + + + + +---------+ + + + + | Result panel 16 | + + + + + + +---------+ + + | (unknown) | (no date) | (unknown) | [facility] | (no | (units | (unknown) | | | | | [facility] | value) | unknown) | | | | | [facility] | | | | + + + + +---------+ + + + + | Result panel 17 | + + + + + + +---------+ + + | (unknown) | (no date) | (unknown) | [facility] | (no | (units | (unknown) | | | | | [facility] | value) | unknown) | | | | | [facility] | | | | + + + + +---------+ + + + + | Result panel 18 | + + + + + + +---------+ + + | (unknown) | (no date) | (unknown) | [facility] | (no | (units | (unknown) | | | | | [facility] | value) | unknown) | | | | | [facility] | | | | + + + + +---------+ + + + + | Result panel 19 | + + + + + + +---------+ + + | (unknown) | (no date) | (unknown) | [facility] | (no | (units | (unknown) | | | | | [facility] | value) | unknown) | | | | | [facility] | | | | + + + + +---------+ + + + + | Result panel 20 | + + + + + + +---------+ + + | (unknown) | (no date) | (unknown) | [facility] | (no | (units | (unknown) | | | | | [facility] | value) | unknown) | | | | | [facility] | | | | + + + + +---------+ + + + + | Result panel 21 | + + + + + + +---------+ + + | (unknown) | (no date) | (unknown) | [facility] | (no | (units | (unknown) | | | | | [facility] | value) | unknown) | | | | | [facility] | | | | + + + + +---------+ + + + + | Result panel 22 | + + + + + + +---------+ + + | (unknown) | (no date) | (unknown) | [facility] | (no | (units | (unknown) | | | | | [facility] | value) | unknown) | | | | | [facility] | | | | + + + + +---------+ + + + + | Result panel 23 | + + + + + + +---------+ + + | (unknown) | (no date) | (unknown) | [facility] | (no | (units | (unknown) | | | | | [facility] | value) | unknown) | | | | | [facility] | | | | + + + + +---------+ + + + + | Result panel 24 | + + + + + + +---------+ + + | (unknown) | (no date) | (unknown) | [facility] | (no | (units | (unknown) | | | | | [facility] | value) | unknown) | | | | | [facility] | | | | + + + + +---------+ + + + + | Result panel 25 | + + + + + + +---------+ + + | (unknown) | (no date) | (unknown) | [facility] | (no | (units | (unknown) | | | | | [facility] | value) | unknown) | | | | | [facility] | | | | + + + + +---------+ + + + + | Result panel 26 | + + + + + + +---------+ + + | (unknown) | (no date) | (unknown) | [facility] | (no | (units | (unknown) | | | | | [facility] | value) | unknown) | | | | | [facility] | | | | + + + + +---------+ + + + + | Result panel 27 | + + + + + + +---------+ + + | (unknown) | (no date) | (unknown) | [facility] | (no | (units | (unknown) | | | | | [facility] | value) | unknown) | | | | | [facility] | | | | + + + + +---------+ + + + + | Result panel 28 | + + + + + + +---------+ + + | (unknown) | (no date) | (unknown) | [facility] | (no | (units | (unknown) | | | | | [facility] | value) | unknown) | | | | | [facility] | | | | + + + + +---------+ + + + + | Result panel 29 | + + + + + + +---------+ + + | (unknown) | (no date) | (unknown) | [facility] | (no | (units | (unknown) | | | | | [facility] | value) | unknown) | | | | | [facility] | | | | + + + + +---------+ + + + + | Result panel 30 | + + + + + + +---------+ + + | (unknown) | (no date) | (unknown) | [facility] | (no | (units | (unknown) | | | | | [facility] | value) | unknown) | | | | [facility] | | | | + + + + +---------+ + + + + | Result panel 31 | + + + + + + +---------+ + + | (unknown) | (no date) | (unknown) | [facility] | (no | (units | (unknown) | | | | | [facility] | value) | unknown) | | | | [facility] | | | | + + + + +---------+ + + + + | Result panel 32 | + + + + + + +---------+ + + | (unknown) | (no date) | (unknown) | [facility] | (no | (units | (unknown) | | | | | [facility] | value) | unknown) | | | | [facility] | | | | + + + + +---------+ + + + + | Result panel 33 | + + + + + + +---------+ + + | (unknown) | (no date) | (unknown) | [facility] | (no | (units | (unknown) | | | | [facility] | value) | unknown) | | | | [facility] | | | | + + + + +---------+ + + Social History No information. Vital Signs + + + +---------+ | date | measurement | value | units | + + + +---------+ | 2022-02-04 00:00 | BMI | 35.5 | kg/m2 | + + + +---------+ | 2022-02-04 00:00 | BP_diastolic | 68 | mmHg | + + + +---------+ | 2022-02-04 00:00 | BP_systolic | 138 | mmHg | + + + +---------+ | 2022-02-04 00:00 | heart_rate | 83 | /min | + + + +---------+ | 2022-02-04 00:00 | height_metric | 154.94 | cm | + + + +---------+ | 2022-02-04 00:00 | height_standard | 61 | in | + + + +---------+ | 2022-02-04 00:00 | o2_saturation | 94 | % | + + + +---------+ | 2022-02-04 00:00 | respiration_rate | 17 | /min | + + + +---------+ | 2022-02-04 00:00 | temperature_metric | 36.89 | C | | | | | | + + + +---------+ | 2022-02-04 00:00 | | 98.4 | F | | | temperature_standar | | | | | d | | | + + + +---------+ | 2022-02-04 00:00 | weight_metric | 85.28 | kg | + + + +---------+ | 2022-02-04 00:00 | weight_standard | 188 | lb | + + + +---------+ | 2022-02-04 00:00 | weight_standard | 188.01 | lb | + + + +---------+ | 2022-07-21 00:00 | BMI | 35.5 | kg/m2 | + + + +---------+ | 2022-07-21 00:00 | height_metric | 154.94 | cm | + + + +---------+ | 2022-07-21 00:00 | height_standard | 61 | in | + + + +---------+ | 2022-07-21 00:00 | weight_metric | 68.95 | kg | + + + +---------+ | 2022-07-21 00:00 | weight_metric | 85.28 | kg | + + + +---------+ | 2022-07-21 00:00 | weight_standard | 152 | lb | + + + +---------+ | 2022-07-21 00:00 | weight_standard | 188.01 | lb | + + + +---------+ | 2022 00:00 | BP_diastolic | 90 | mmHg | + + + +---------+ | 2022 00:00 | BP_systolic | 149 | mmHg | + + + +---------+ | 2022 00:00 | heart_rate | 80 | /min | + + + +---------+ | 2022 00:00 | o2_saturation | 97 | % | + + + +---------+ | 2022 00:00 | respiration_rate | 16 | /min | + + + +---------+ | 2022 00:00 | temperature_metric | 37.06 | C | | | | | | + + + +---------+ | 2022 00:00 | | 98.7 | F | | | temperature_standar | | | | | d | | | + + + +---------+ | 2022-09-16 00:00 | BMI | 28.7 | kg/m2 | + + + +---------+ | 2022-09-16 00:00 | BP_diastolic | 70 | mmHg | + + + +---------+ | 2022-09-16 00:00 | BP_systolic | 150 | mmHg | + + + +---------+ | 2022-09-16 00:00 | heart_rate | 78 | /min | + + + +---------+ | 2022-09-16 00:00 | height_metric | 154.94 | cm | + + + +---------+ | 2022-09-16 00:00 | height_standard | 61 | in | + + + +---------+ | 2022-09-16 00:00 | o2_saturation | 95 | % | + + + +---------+ | 2022-09-16 00:00 | respiration_rate | 18 | /min | + + + +---------+ | 2022-09-16 00:00 | temperature_metric | 36.56 | C | | | | | | + + + +---------+ | 2022-09-16 00:00 | | 97.8 | F | | | temperature_standar | | | | | d | | | + + + +---------+ | 2022-09-16 00:00 | weight_metric | 68.95 | kg | + + + +---------+ | 2022-09-16 00:00 | weight_standard | 152 | lb | + + + +---------+ | 2022-09-22 00:00 | BMI | 28.7 | kg/m2 | + + + +---------+ | 2022-09-22 00:00 | BP_diastolic | 64 | mmHg | + + + +---------+ | 2022-09-22 00:00 | BP_systolic | 111 | mmHg | + + + +---------+ | 2022-09-22 00:00 | heart_rate | 87 | /min | + + + +---------+ | 2022-09-22 00:00 | height_metric | 154.94 | cm | + + + +---------+ | 2022-09-22 00:00 | height_standard | 61 | in | + + + +---------+ | 2022-09-22 00:00 | o2_saturation | 95 | % | + + + +---------+ | 2022-09-22 00:00 | respiration_rate | 16 | /min | + + + +---------+ | 2022-09-22 00:00 | temperature_metric | 36.67 | C | | | | | | + + + +---------+ | 2022-09-22 00:00 | | 98 | F | | | temperature_standar | | | | | d | | | + + + +---------+ | 2022-09-22 00:00 | weight_metric | 68.95 | kg | + + + +---------+ | 2022-09-22 00:00 | weight_standard | 152 | lb | + + + +---------+ | 2022-09-22 00:00 | weight_standard | 152.01 | lb | + + + +---------+"
--- OUTSIDE RECORDS SUMMARY | ~2022-09-23 | XMS | Continuity of Care Document ---
Demographics + + + | Address | [facility] [address] | | | [place] [address] | + + + | Preferred Language | Unknown | + + + | Marital Status | | + + + | Mu-Ism Affiliation | Unknown | + + + | Race | White | + + + | Ethnic Group | Not or | + + + Author + + + | Author | [facility] | + + + | Organization | [facility] | + + + | Address | [address] | | | [place] [address] | + + + | Phone | | + + + Care Team Providers + + + + | Care Bridge Painter Helper Name | Role | Phone | + + + + Unavailable | Unavailable | + + + + Unavailable | Unavailable | + + + + Unavailable | Unavailable | + + + + Allergies and Intolerances + + + + + | date | description | facility | type | + + + + + | (no date) | Lisinopril | [facility] | (unknown) | | | [facility] Hospital | | + + + + + | (no date) | Mild | [facility] | (unknown) | | | | Hospital | | + + + + + | (no date) | Rash | [facility] | (unknown) | | | | Hospital | | + + + + + | (no date) | Lisinopril | [facility] | (unknown) | | | | Hospital | | + + + + + | (no date) | Diltiazem | [facility] | (unknown) | | | | Hospital | | + + + + + | (no date) | Diltiazem | [facility] | (unknown) | | | | Hospital | | + + + + + | (no date) | Oxycodone | [facility] | (unknown) | | | | Hospital | | + + + + + | (no date) | Oxycodone | [facility] | (unknown) | | | | Hospital | | + + + + + | (no date) | Oxycodone | [facility] | (unknown) | | | | Hospital | | + + + + + | (no date) | Lisinopril | [facility] | (unknown) | | | | Hospital [...] + | 2022-09-16 00:00 | Lidocaine | [facility] | + + + + | 2022-09-16 00:00 | Lidocaine | [facility] | + + + + | 2019-11-18 00:00 | APIXABAN | [facility] | + + + + | 2019-11-18 00:00 | APIXABAN | [facility] | + + + + | 2022 00:00 | DOXYCYCLINE HYCLATE | [facility] | + + + + | 2022 00:00 | DOXYCYCLINE HYCLATE | [facility] | + + + + | 2022 00:00 | DICLOXACILLIN SODIUM | [facility] | + + + + | 2022-09-16 00:00 | DICLOXACILLIN SODIUM | [facility] | + + + + | 2022-09-22 00:00 | DICLOXACILLIN SODIUM | [facility] | + + + + | 2017-07-28 00:00 | OMEPRAZOLE | [facility] | + + + + | 2017-07-28 00:00 | OMEPRAZOLE | [facility] | + + + + | 2022 00:00 | GABAPENTIN | [facility] | + + + + | 2022-09-16 00:00 | GABAPENTIN | [facility] | + + + + | 2022-09-22 00:00 | GABAPENTIN | [facility] | + + + + | 2019-11-18 00:00 | predniSONE | [facility] | + + + + | 2019-11-18 00:00 | predniSONE | [facility] | + + + + | 2022-02-04 00:00 | ASPIRIN | [facility] | + + + + | 2022 00:00 | ASPIRIN | [facility] | + + + + | 2022-09-16 00:00 | ASPIRIN | [facility] | + + + + | 2022-09-22 00:00 | ASPIRIN | [facility] | + + + + | 2022 00:00 | Pregabalin | [facility] | + + + + | 2022-09-16 00:00 | Pregabalin | [facility] | + + + + | 2022-09-22 00:00 | Pregabalin | [facility] | + + + + | 2019-11-18 00:00 | DILTIAZEM HCL | [facility] | + + + + | 2019-11-18 00:00 | DILTIAZEM HCL | [facility] | + + + + | 2022-09-16 00:00 | HYDROCODONE | [facility] | | | BIT/ACETAMINOPHEN | | + + + + | 2022-09-16 00:00 | HYDROCODONE | [facility] | | | BIT/ACETAMINOPHEN | | + + + + | 2022-02-04 00:00 | OXYBUTYNIN CHLORIDE | [facility] | + + + + | 2022 00:00 | OXYBUTYNIN CHLORIDE | [facility] | + + + + | 2022-09-16 00:00 | OXYBUTYNIN CHLORIDE | [facility] | + + + + | 2022-09-22 00:00 | OXYBUTYNIN CHLORIDE | [facility] | + + + + | 2022-02-04 00:00 | METOPROLOL SUCCINATE | [facility] | + + + + | 2022 00:00 | METOPROLOL SUCCINATE | [facility] | + + + + | 2022-09-16 00:00 | METOPROLOL SUCCINATE | [facility] | + + + + | 2022-09-22 00:00 | METOPROLOL SUCCINATE | [facility] | + + + + | 2022-09-22 00:00 | MORPHINE SULFATE | [facility] | + + + + | 2022-02-04 00:00 | LEVOTHYROXINE SODIUM | [facility] | + + + + | 2022 00:00 | LEVOTHYROXINE SODIUM | [facility] | + + + + | 2022-09-16 00:00 | LEVOTHYROXINE SODIUM | [facility] | + + + + | 2022-09-22 00:00 | LEVOTHYROXINE SODIUM | [facility] | + + + + | 2022-02-04 00:00 | LOSARTAN POTASSIUM | [facility] | + + + + | 2022 00:00 | LOSARTAN POTASSIUM | [facility] | + + + + | 2022-09-16 00:00 | LOSARTAN POTASSIUM | [facility] | + + + + | 2022-09-22 00:00 | LOSARTAN POTASSIUM | [facility] | + + + + Problems + + + + | date | description | facility | + + + + | 2015-08-08 00:00 | Syncope | [facility] | + + + + | 2015-08-08 00:00 | Syncope | [facility] | + + + + | 2015-08-09 00:00 | Follow up | [facility] | + + + + | 2015-08-09 00:00 | Follow up | [facility] | + + + + | 2016-05-17 00:00 | Vomiting | [facility] | + + + + | 2016-05-17 00:00 | Vomiting | [facility] | + + + + | 2017-07-28 00:00 | Nonspecific chest pain | [facility] | + + + + | 2017-07-28 00:00 | Nonspecific chest pain | [facility] | + + + + | 2017-09-10 00:00 | Abdominal pain | [facility] | + + + + | 2017-09-10 00:00 | Abdominal pain | [facility] | + + + + | 2018-03-18 00:00 | Nonspecific abdominal pain | [facility] | | | | | + + + + | 2018-03-18 00:00 | Nonspecific abdominal pain | [facility] | | | | | + + + + | 2019-11-15 00:00 | Atrial flutter | [facility] | + + + + | 2019-11-15 00:00 | Atrial flutter | [facility] | + + + + | 2020-01-21 00:00 | Hematoma | [facility] | + + + + | 2020-01-21 00:00 | Hematoma | [facility] | + + + + | 2020-04-20 00:00 | Contusion of left wrist | [facility] | + + + + | 2020-04-20 00:00 | Contusion of left wrist | [facility] | + + + + | 2022-02-04 00:00 | Acute exacerbation of | [facility] | | | chronic obstructive | | | | pulmonary disease | | + + + + | 2022-02-04 00:00 | Acute exacerbation of | [facility] | | | chronic obstructive | | | | pulmonary disease | | + + + + | 2022-09-16 00:00 | Compression fracture | [facility] | + + + + | 2022-09-16 00:00 | Compression fracture | [facility] | + + + + | 2022-09-16 00:00 | Lung mass | [facility] | + + + + | 2022-09-16 00:00 | Lung mass | [facility] | + + + + | 2022-09-16 [...] + + | 2022-09-16 08:21 | OTHER BETTING AGENCY MANAGER (CURRENT) | [facility] | | | DRUG [...] 2022-09-22 00:00 | Pathological fracture of | [facility] | | | lumbar vertebra | | [...]
--- OUTSIDE RECORDS SUMMARY | ~2022-09-23 | XMS | Continuity of Care Document ---
Demographics + + + | Address | [facility] [address] | | | [place] [address] | + + + | Preferred Language | Unknown | + + + | Marital Status | | + + + | Gnosticism Affiliation | Unknown | + + + | Race | White | + + + | Ethnic Group | Not or | + + + Author + + + | Author | [facility] | + + + | Organization | [facility] | + + + | Address | [address] | | | [place] [address] | + + + | Phone | | + + + Care Team Providers + + + + | Care Sprinkler Tender Name | Role | Phone | + + + + Unavailable | Unavailable | + + + + Unavailable | Unavailable | + + + + Unavailable | Unavailable | + + + + Allergies and Intolerances + + + + + | date | description | facility | type | + + + + + | (no date) | Lisinopril | [facility] | (unknown) | | | | Hospital | | + + + + + | (no date) | Mild | [facility] | (unknown) | | | | Hospital | | + + + + + | (no date) | Rash | [facility] | (unknown) | | | | Hospital | | + + + + + | (no date) | Lisinopril | [facility] | (unknown) | | | | Hospital | | + + + + + | (no date) | Diltiazem | [facility] | (unknown) | | | | Hospital | | + + + + + | (no date) | Diltiazem | [facility] | (unknown) | | | | Hospital | | + + + + + | (no date) | Oxycodone | [facility] | (unknown) | | | | Hospital | | + + + + + | (no date) | Oxycodone | [facility] | (unknown) | | | | Hospital | | + + + + + | (no date) | Oxycodone | [facility] | (unknown) | | | | Hospital | | + + + + + | (no date) | Lisinopril | [facility] | (unknown) | | | | Hospital [...] + | 2022-09-16 00:00 | Lidocaine | [facility] | + + + + | 2022-09-16 00:00 | Lidocaine | [facility] | + + + + | 2019-11-18 00:00 | APIXABAN | [facility] | + + + + | 2019-11-18 00:00 | APIXABAN | [facility] | + + + + | 2022 00:00 | DOXYCYCLINE HYCLATE | [facility] | + + + + | 2022 00:00 | DOXYCYCLINE HYCLATE | [facility] | + + + + | 2022 00:00 | DICLOXACILLIN SODIUM | [facility] | + + + + | 2022-09-16 00:00 | DICLOXACILLIN SODIUM | [facility] | + + + + | 2022-09-22 00:00 | DICLOXACILLIN SODIUM | [facility] | + + + + | 2017-07-28 00:00 | OMEPRAZOLE | [facility] | + + + + | 2017-07-28 00:00 | OMEPRAZOLE | [facility] | + + + + | 2022 00:00 | GABAPENTIN | [facility] | + + + + | 2022-09-16 00:00 | GABAPENTIN | [facility] | + + + + | 2022-09-22 00:00 | GABAPENTIN | [facility] | + + + + | 2019-11-18 00:00 | predniSONE | [facility] | + + + + | 2019-11-18 00:00 | predniSONE | [facility] | + + + + | 2022-02-04 00:00 | ASPIRIN | [facility] | + + + + | 2022 00:00 | ASPIRIN | [facility] | + + + + | 2022-09-16 00:00 | ASPIRIN | [facility] | + + + + | 2022-09-22 00:00 | ASPIRIN | [facility] | + + + + | 2022 00:00 | Pregabalin | [facility] | + + + + | 2022-09-16 00:00 | Pregabalin | [facility] | + + + + | 2022-09-22 00:00 | Pregabalin | [facility] | + + + + | 2019-11-18 00:00 | DILTIAZEM HCL | [facility] | + + + + | 2019-11-18 00:00 | DILTIAZEM HCL | [facility] | + + + + | 2022-09-16 00:00 | HYDROCODONE | [facility] | | | BIT/ACETAMINOPHEN | | + + + + | 2022-09-16 00:00 | HYDROCODONE | [facility] | | | BIT/ACETAMINOPHEN | | + + + + | 2022-02-04 00:00 | OXYBUTYNIN CHLORIDE | [facility] | + + + + | 2022 00:00 | OXYBUTYNIN CHLORIDE | [facility] | + + + + | 2022-09-16 00:00 | OXYBUTYNIN CHLORIDE | [facility] | + + + + | 2022-09-22 00:00 | OXYBUTYNIN CHLORIDE | [facility] | + + + + | 2022-02-04 00:00 | METOPROLOL SUCCINATE | [facility] | + + + + | 2022 00:00 | METOPROLOL SUCCINATE | [facility] | + + + + | 2022-09-16 00:00 | METOPROLOL SUCCINATE | [facility] | + + + + | 2022-09-22 00:00 | METOPROLOL SUCCINATE | [facility] | + + + + | 2022-09-22 00:00 | MORPHINE SULFATE | [facility] | + + + + | 2022-02-04 00:00 | LEVOTHYROXINE SODIUM | [facility] | + + + + | 2022 00:00 | LEVOTHYROXINE SODIUM | [facility] | + + + + | 2022-09-16 00:00 | LEVOTHYROXINE SODIUM | [facility] | + + + + | 2022-09-22 00:00 | LEVOTHYROXINE SODIUM | [facility] | + + + + | 2022-02-04 00:00 | LOSARTAN POTASSIUM | [facility] | + + + + | 2022 00:00 | LOSARTAN POTASSIUM | [facility] | + + + + | 2022-09-16 00:00 | LOSARTAN POTASSIUM | [facility] | + + + + | 2022-09-22 00:00 | LOSARTAN POTASSIUM | [facility] | + + + + Problems + + + + | date | description | facility | + + + + | 2015-08-08 00:00 | Syncope | [facility] | + + + + | 2015-08-08 00:00 | Syncope | [facility] | + + + + | 2015-08-09 00:00 | Follow up | [facility] | + + + + | 2015-08-09 00:00 | Follow up | [facility] | + + + + | 2016-05-17 00:00 | Vomiting | [facility] | + + + + | 2016-05-17 00:00 | Vomiting | [facility] | + + + + | 2017-07-28 00:00 | Nonspecific chest pain | [facility] | + + + + | 2017-07-28 00:00 | Nonspecific chest pain | [facility] | + + + + | 2017-09-10 00:00 | Abdominal pain | [facility] | + + + + | 2017-09-10 00:00 | Abdominal pain | [facility] | + + + + | 2018-03-18 00:00 | Nonspecific abdominal pain | [facility] | | | | | + + + + | 2018-03-18 00:00 | Nonspecific abdominal pain | [facility] | | | | | + + + + | 2019-11-15 00:00 | Atrial flutter | [facility] | + + + + | 2019-11-15 00:00 | Atrial flutter | [facility] | + + + + | 2020-01-21 00:00 | Hematoma | [facility] | + + + + | 2020-01-21 00:00 | Hematoma | [facility] | + + + + | 2020-04-20 00:00 | Contusion of left wrist | [facility] | + + + + | 2020-04-20 00:00 | Contusion of left wrist | [facility] | + + + + | 2022-02-04 00:00 | Acute exacerbation of | [facility] | | | chronic obstructive | | | | pulmonary disease | | + + + + | 2022-02-04 00:00 | Acute exacerbation of | [facility] | | | chronic obstructive | | | | pulmonary disease | | + + + + | 2022-09-16 00:00 | Compression fracture | [facility] | + + + + | 2022-09-16 00:00 | Compression fracture | [facility] | + + + + | 2022-09-16 00:00 | Lung mass | [facility] | + + + + | 2022-09-16 00:00 | Lung mass | 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 | | | lumbar vertebra | | [...]
[~2022-09-23 03:21] MED LIST changes: +DICLOXACILLIN500 MG PO; +DOXYCYCLINE HY100 MG PO; +GABAPENTIN300 MG PO; +HYDROCODON-ACE1 EA11 PO; +LIDODERM1 EACH TOP; +MORPHINE SULFAT15 MG PO; +ONDANSETRON ODT4 MG PO; +PREGABALIN50 MG PO
--- OUTSIDE RECORDS SUMMARY | 2022-09-23 03:25 | XMS ---
PreManage Notification: TONY LUA Security Scarfer Events No recent Security Events currently on file [facility] CARE PROVIDERS KAYLEN ROGERS Physician Cardiology Fellow Current PHONE: [phone] Soniya has no Care Guidelines for this patient. EJitendra VISIT COUNT (12 MO.) 5 [facility] TOTAL 5 NOTE: Visits indicate total known visits. ED/C VISIT TRACKING (12 MO.) 09/23/2022 03:22 [facility]E [facility] [place] TYPE: Emergency COMPLAINT: - BACK PAIN 09/22/2022 18:19 JODEE [facility] [place] TYPE: Emergency COMPLAINT: - BACK PAIN 09/16/2022 08:21 JODEE [facility] [place] TYPE: Emergency COMPLAINT: - BACK PAIN DIAGNOSES: - Allergy status to narcotic agent - Allergy status to other drugs, medicaments and biological substances - Chronic obstructive pulmonary disease, unspecified - Essential (primary) hypertension - Hormone replacement therapy - Low back pain, unspecified - Other usp (current) drug therapy - Other nonspecific abnormal finding of lung field - Personal history of nicotine dependence - Unspecified fall, initial encounter - Unspecified fracture of fourth lumbar vertebra, initial encounter for closed fracture 07/21/2022 23:44 JODEE [facility] [place] TYPE: Emergency COMPLAINT: - SORE THROAT DIAGNOSES: - Acute pharyngitis, unspecified - Allergy status to narcotic agent - Allergy status to other drugs, medicaments and biological substances - Chronic obstructive pulmonary disease, unspecified - Hormone replacement therapy - USP (current) use of anticoagulants - Other usp (current) drug therapy - Personal history of nicotine dependence 02/04/2022 12:48 JODEE [facility] [place] TYPE: Emergency [...] visits to display in this time frame [email or web address]
[2022-09-23 05:32] VITALS: BP 144/62
[2022-09-23] MEDS ORDERED: STIOLTO RESPIMAT4 GM INH ×2 (05:48)
[2022-09-23 07:59] VITALS: BP 135/71
[2022-09-23] MEDS ORDERED: MORPHINE SULFAT15 MG PO ×2 (13:01)
[2022-09-23] MEDS ORDERED: METOPROLOL TART25 MG PO ×2 (13:02)
[2022-09-23] MEDS ORDERED: CALCITONIN-SAL3.7 ML NAS ×2 (13:04)
[2022-09-23] MEDS ORDERED: DICLOFENAC SOD100 G1 ×2 (13:07)
[2022-09-23] MEDS ORDERED: LEVOTHYROXINE175 MCG PO ×2 (13:08)
[2022-09-23] MEDS ORDERED: ELIQUIS5 MG PO ×2 (13:10)
[2022-09-23 13:38] VITALS: BP 121/69
[2022-09-23 18:06] VITALS: BP 103/69
[2022-09-23 20:19] VITALS: BP 114/52
[2022-09-24 01:45] VITALS: BP 122/61
[2022-09-24 06:02] VITALS: BP 113/66
[2022-09-24 09:43] VITALS: BP 105/56
[2022-09-24 13:53] VITALS: BP 111/57
[2022-09-24] MEDS ORDERED: TYLENOL325 MG PO ×2 (14:16)
[2022-09-24] MEDS ORDERED: OXYBUTYNIN CHLOR5 MG PO ×2 (14:17)
[2022-09-24 18:41] VITALS: BP 101/65
[2022-09-24 20:50] VITALS: BP 114/60
[2022-09-25 01:42] VITALS: BP 138/76
[2022-09-25 05:02] VITALS: BP 138/75
[2022-09-25 09:34] VITALS: BP 114/64
[2022-09-25 13:23] VITALS: BP 120/61
[2022-09-25 19:49] VITALS: BP 123/60
[2022-09-26 01:09] VITALS: BP 142/80
[2022-09-26 05:49] VITALS: BP 128/72
[2022-09-26 09:11] VITALS: BP 110/55
[2022-09-26 13:32] VITALS: BP 118/62
[2022-09-26 17:46] VITALS: BP 134/78
[2022-09-26 20:39] VITALS: BP 129/70
[2022-09-27 01:50] VITALS: BP 122/52
[2022-09-27 04:44] VITALS: BP 112/73
[2022-09-27 09:52] VITALS: BP 133/78
[2022-09-27 13:20] VITALS: BP 109/59
[2022-09-27 18:03] VITALS: BP 105/52
[2022-09-27 20:24] VITALS: BP 129/68
[2022-09-28 05:19] VITALS: BP 116/71
[2022-09-28 08:41] VITALS: BP 142/77
[2022-09-28 13:38] VITALS: BP 110/64
[2022-09-28 18:36] VITALS: BP 111/71
[2022-09-28 20:05] VITALS: BP 123/75
[2022-09-29 04:46] VITALS: BP 123/70
[2022-09-29 08:50] VITALS: BP 136/77
[2022-09-29 13:47] VITALS: BP 115/67
[2022-09-29 14:01] VITALS: BP 117/61
[2022-09-29 18:46] VITALS: BP 128/58
[2022-09-29 20:31] VITALS: BP 120/70
[2022-09-30 01:20] VITALS: BP 132/75
[2022-09-30 06:32] VITALS: BP 132/65
[2022-09-30 07:51] VITALS: BP 126/87
[2022-09-30 14:21] VITALS: BP 127/55
[2022-09-30 17:38] VITALS: BP 138/54
[2022-09-30 20:45] VITALS: BP 145/82
[2022-10-01 04:56] VITALS: BP 149/79
[2022-10-01 08:09] VITALS: BP 106/79
[2022-10-01 13:18] VITALS: BP 118/56
[2022-10-01 18:03] VITALS: BP 103/60
[2022-10-01 20:37] VITALS: BP 127/81
[2022-10-02 05:39] VITALS: BP 139/73
[2022-10-02 08:10] VITALS: BP 131/63
[2022-10-02] MEDS ORDERED: SULFAMETHOXAZO1 EAC1 PO ×2 (10:25)
[2022-10-02] MEDS ORDERED: PREGABALIN50 MG PO ×2 (10:27)
[2022-10-02 13:11] VITALS: BP 109/48
[2022-10-02 15:54] VITALS: BP 109/54
[2022-10-03] MEDS ORDERED: FENTANYL1 EAC4 TD (08:11)
== END 2022-10-02 16:15 | disposition home or self-care (01) | DRG 543 ==
LOC: ED 03:21 → MS 03:23
PROVIDERS: ADMIT Family Medicine; ATTEND Family Medicine
PROC: 0T9B70Z Drainage of Bladder with Drainage Device, Via Natural or Artificial Opening (ICD-10-PCS; principal; 2022-09-24)
DX: M84.58XA Pathological fracture in neoplastic disease, other specified site, initial encounter for fracture (principal); C79.51 Secondary malignant neoplasm of bone; I48.92 Unspecified atrial flutter; J44.1 Chronic obstructive pulmonary disease with (acute) exacerbation; E44.1 Mild protein-calorie malnutrition; Z51.5 Encounter for palliative care; R91.8 Other nonspecific abnormal finding of lung field; I10 Essential (primary) hypertension; E89.0 Postprocedural hypothyroidism; M81.0 Age-related osteoporosis without current pathological fracture; K59.00 Constipation, unspecified; I95.9 Hypotension, unspecified; K76.89 Other specified diseases of liver; I48.91 Unspecified atrial fibrillation; G89.3 Neoplasm related pain (acute) (chronic); Z90.49 Acquired absence of other specified parts of digestive tract; Z88.5 Allergy status to narcotic agent; Z88.8 Allergy status to other drugs, medicaments and biological substances; Z79.890 Hormone replacement therapy; Z79.891 Long term (current) use of opiate analgesic; Z79.01 Long term (current) use of anticoagulants; Z68.20 Body mass index [BMI] 20.0-20.9, adult; Z87.891 Personal history of nicotine dependence; Z98.890 Other specified postprocedural states
CPT/HCPCS: 36415; 51702; 80048; 80053; 81001; 81003; 85025; 87088; 87502; 94760; 96374; 96375; 96376; 97110; 97116; 97162; 97530; 99284 25; A9270; G0378; J1100; J1170; J7030; J7121; J8540; U0002

== ENCOUNTER 2022-10-03 07:26 | Emergency (ER) | payer MEDICARE ==
[~2022-10-03] VITALS: Ht 154.9 cm; Wt 74.8 kg
--- OUTSIDE RECORDS SUMMARY | ~2022-10-03 | XMS | Continuity of Care Document ---
Demographics + + + | Address | [facility] [address] | | | [place] [address] | + + + | Preferred Language | Unknown | + + + | Marital Status | | + + + | Tenriism Affiliation | Unknown | + + + | Race | White | + + + | Ethnic Group | Not or | + + + Author + + + | Author | [facility] | + + + | Organization | [facility] | + + + | Address | [address] | | | [place] [address] | + + + | Phone | | + + + Care Team Providers + + + + | Care Front End Specialist Name | Role | Phone | + [...] | (no date) | Lisinopril | [facility] | (unknown) | | | | [facility] | | + + + + + | (no date) | Mild | [facility] | (unknown) | | | | Hospital | | + + + + + | (no date) | Rash | [facility] | (unknown) | | | | Hospital | | + + + + + | (no date) | Lisinopril | [facility] | (unknown) | | | | Hospital | | + + + + + | (no date) | Tachycardia | [facility] | (unknown) | | | | Hospital | | + + + + + | (no date) | Diltiazem | [facility] | (unknown) | | | | Hospital | | + + + + + | (no date) | Diltiazem | [facility] | (unknown) | | | | Hospital | | + + + + + | (no date) | Albuterol | [facility] | (unknown) | | | | Hospital | | + + + + + | (no date) | Oxycodone | [facility] | (unknown) | | | | Hospital | | + + + + + | (no date) | Albuterol | [facility] | (unknown) | | | | [facility] | | + + + + + | (no date) | Oxycodone | [facility] | (unknown) | | | | Hospital | | + + + + + | (no date) | Oxycodone | [facility] | (unknown) | | | | [facility] | | + + + + + | (no date) | Lisinopril | [facility] | (unknown) | | | | [facility] | | + + + + + | (no date) | Diltiazem | [facility] | (unknown) | | | | Hospital | | + + + + + | (no date) | lisinopril | [facility] | (unknown) | + + + + + | (no date) | oxycodone | [facility] | (unknown) | + + + + + | (no date) | diltiazem | [facility] | (unknown) | + + + + + | (no date) | Albuterol | [facility] | (unknown) | | | | Hospital | | + + + + + Encounters No information. Functional Status No information. Immunizations No information. Medications + + + + | date | description | facility | + + + + | 2022-09-16 00:00 | Lidocaine | [facility] | + + + + | 2022-09-16 00:00 | Lidocaine | [facility] | + + + + | 2022-09-22 00:00 | ONDANSETRON | [facility] | + + + + | 2019-11-18 00:00 | APIXABAN | [facility] | + + + + | 2019-11-18 00:00 | APIXABAN | [facility] | + + + + | 2022-10-02 00:00 | APIXABAN | [facility] | + + + + | 2022 00:00 | DOXYCYCLINE HYCLATE | [facility] | + + + + | 2022 00:00 | DOXYCYCLINE HYCLATE | [facility] | + + + + | 2022-10-02 00:00 | TIOTROPIUM BR/OLODATEROL | [facility] | | | HCL | | + + + + | 2022 00:00 | DICLOXACILLIN SODIUM | [facility] | + + + + | 2022-09-16 00:00 | DICLOXACILLIN SODIUM | [facility] | + + + + | 2022-09-22 00:00 | DICLOXACILLIN SODIUM | [facility] | + + + + | 2017-07-28 00:00 | OMEPRAZOLE | [facility] | + + + + | 2017-07-28 00:00 | OMEPRAZOLE | [facility] | + + + + | 2022-10-02 00:00 | | [facility] | | | SULFAMETHOXAZOLE/TRIMETHOPR | | | | IM | | + + + + | 2022 00:00 | GABAPENTIN | [facility] | + + + + | 2022-09-16 00:00 | GABAPENTIN | [facility] | + + + + | 2022-09-22 00:00 | GABAPENTIN | [facility] | + + + + | 2022-10-02 00:00 | GABAPENTIN | [facility] | + + + + | 2019-11-18 00:00 | predniSONE | [facility] | + + + + | 2019-11-18 00:00 | predniSONE | [facility] | + + + + | 2022-10-02 00:00 | ACETAMINOPHEN | [facility] | + + + + | 2022-10-02 00:00 | | [facility] | | | CALCITONIN,SALMON,SYNTHETIC | | | | | | + + + + | 2022-02-04 00:00 | ASPIRIN | [facility] | + + + + | 2022 00:00 | ASPIRIN | [facility] | + + + + | 2022-09-16 00:00 | ASPIRIN | [facility] | + + + + | 2022-09-22 00:00 | ASPIRIN | [facility] | + + + + | 2022-10-02 00:00 | ASPIRIN | [facility] | + + + + | 2022 00:00 | Pregabalin | [facility] | + + + + | 2022-09-16 00:00 | Pregabalin | [facility] | + + + + | 2022-09-22 00:00 | Pregabalin | [facility] | + + + + | 2022-10-02 00:00 | Pregabalin | [facility] | + + + + | 2019-11-18 00:00 | DILTIAZEM HCL | [facility] | + + + + | 2019-11-18 00:00 | DILTIAZEM HCL | [facility] | + + + + | 2022-10-02 00:00 | Diclofenac Sodium | [facility] | + + + + | 2022-09-16 00:00 | HYDROCODONE | [facility] | | | BIT/ACETAMINOPHEN | | + + + + | 2022-09-16 00:00 | HYDROCODONE | [facility] | | | BIT/ACETAMINOPHEN | | + + + + | 2022-02-04 00:00 | OXYBUTYNIN CHLORIDE | [facility] | + + + + | 2022 00:00 | OXYBUTYNIN CHLORIDE | [facility] | + + + + | 2022-09-16 00:00 | OXYBUTYNIN CHLORIDE | [facility] | + + + + | 2022-09-22 00:00 | OXYBUTYNIN CHLORIDE | [facility] | + + + + | 2022-10-02 00:00 | OXYBUTYNIN CHLORIDE | [facility] | + + + + | 2022-02-04 00:00 | METOPROLOL SUCCINATE | [facility] | + + + + | 2022 00:00 | METOPROLOL SUCCINATE | [facility] | + + + + | 2022-09-16 00:00 | METOPROLOL SUCCINATE | [facility] | + + + + | 2022-09-22 00:00 | METOPROLOL SUCCINATE | [facility] | + + + + | 2022-10-02 00:00 | METOPROLOL TARTRATE | [facility] | + + + + | 2022-09-22 00:00 | MORPHINE SULFATE | [facility] | + + + + | 2022-09-22 00:00 | MORPHINE SULFATE | [facility] | + + + + | 2022-10-02 00:00 | MORPHINE SULFATE | [facility] | + + + + | 2022-10-02 00:00 | LEVOTHYROXINE SODIUM | [facility] | + + + + | 2022-02-04 00:00 | LEVOTHYROXINE SODIUM | [facility] | + + + + | 2022 00:00 | LEVOTHYROXINE SODIUM | [facility] | + + + + | 2022-09-16 00:00 | LEVOTHYROXINE SODIUM | [facility] | + + + + | 2022-09-22 00:00 | LEVOTHYROXINE SODIUM | [facility] | + + + + | 2022-02-04 00:00 | LOSARTAN POTASSIUM | [facility] | + + + + | 2022 00:00 | LOSARTAN POTASSIUM | [facility] | + + + + | 2022-09-16 00:00 | LOSARTAN POTASSIUM | [facility] | + + + + | 2022-09-22 00:00 | LOSARTAN POTASSIUM | [facility] | + + + + | 2022-10-02 00:00 | LOSARTAN POTASSIUM | [facility] | + + + + Problems + + + + | date | description | facility | + + + + | 2015-08-08 00:00 | Syncope | [facility] | + + + + | 2015-08-08 00:00 | Syncope | [facility] | + + + + | 2015-08-09 00:00 | Follow up | [facility] | + + + + | 2015-08-09 00:00 | Follow up | [facility] | + + + + | 2016-05-17 00:00 | Vomiting | [facility] | + + + + | 2016-05-17 00:00 | Vomiting | [facility] | + + + + | 2017-07-28 00:00 | Nonspecific chest pain | [facility] | + + + + | 2017-07-28 00:00 | Nonspecific chest pain | [facility] | + + + + | 2017-09-10 00:00 | Abdominal pain | [facility] | + + + + | 2017-09-10 00:00 | Abdominal pain | [facility] | + + + + | 2018-03-18 00:00 | Nonspecific abdominal pain | [facility] | | | | | + + + + | 2018-03-18 00:00 | Nonspecific abdominal pain | [facility] | | | | | + + + + | 2019-11-15 00:00 | Atrial flutter | [facility] | + + + + | 2019-11-15 00:00 | Atrial flutter | [facility] | + + + + | 2020-01-21 00:00 | Hematoma | [facility] | + + + + | 2020-01-21 00:00 | Hematoma | [facility] | + + + + | 2020-04-20 00:00 | Contusion of left wrist | [facility] | + + + + | 2020-04-20 00:00 | Contusion of left wrist | [facility] | + + + + | 2022-02-04 00:00 | Acute exacerbation of | [facility] | | | chronic obstructive | | | | pulmonary disease | | + + + + | 2022-02-04 00:00 | Acute exacerbation of | [facility] | | | chronic obstructive | | | | pulmonary disease | | + + + + | 2022-02-04 12:48 | HYPOTHYROIDISM, | [facility] | | | UNSPECIFIED | | + + + + | 2022-02-04 12:48 | UNSPECIFIED ATRIAL FLUTTER | [facility] | | | | | + + + + | 2022-02-04 12:48 | CHRONIC OBSTRUCTIVE | [facility] | | | PULMONARY DISEASE W (ACUTE) | | | | EX | | + + + + | 2022-02-04 12:48 | SHORTNESS OF BREATH | [facility] | + + + + | 2022-02-04 12:48 | PERSONAL HISTORY OF | [facility] | | | NICOTINE DEPENDENCE | | + + + + | 2022-02-04 12:48 | ALLERGY STATUS TO NARCOTIC | [facility] | | | AGENT STATUS | | + + + + | 2022-02-04 12:48 | ALLERGY STATUS TO OTH | [facility] | | | DRUG/MEDS/BIOL SUBST STATUS | | | | | | + + + + | 2022-06-20 10:43 | SPRAIN OF RIBS, INITIAL | [facility] | | | ENCOUNTER | | + + + + | 2022-07-20 12:41 | MASTODYNIA | [facility] | + + + + | 2022-07-21 23:44 | ACUTE PHARYNGITIS, | [facility] | | | UNSPECIFIED | | + + + + | 2022-07-21 23:44 | CHRONIC OBSTRUCTIVE | [facility] | | | PULMONARY DISEASE, | | | | UNSPECIFIED | | + + + + | 2022-07-21 23:44 | ROVING TELLER (CURRENT) USE OF | [facility] | | | ANTICOAGULANTS | | + + + + | 2022-07-21 23:44 | HORMONE REPLACEMENT | [facility] | | | THERAPY | | + + + + | 2022-07-21 23:44 | OTHER DETENTION (CURRENT) | [facility] | | | DRUG THERAPY | | + + + + | 2022-07-21 23:44 | PERSONAL HISTORY OF | [facility] | | | NICOTINE DEPENDENCE | | + + + + | 2022-07-21 23:44 | ALLERGY STATUS TO NARCOTIC | [facility] | | | AGENT STATUS | | + + + + | 2022-07-21 23:44 | ALLERGY STATUS TO OTH | [facility] | | | DRUG/MEDS/BIOL SUBST STATUS | | | | | | + + + + | 2022-09-16 00:00 | Compression fracture | [facility] | + + + + | 2022-09-16 00:00 | Compression fracture | [facility] | + + + + | 2022-09-16 00:00 | Lung mass | [facility] | + + + + | 2022-09-16 00:00 | Lung mass | [facility] | + + + + | 2022-09-16 [...] + + | 2022-09-16 08:21 | OTHER ROVING TELLER (CURRENT) | [facility] | | | DRUG [...] 2022-09-22 00:00 | Pathological fracture of | [facility] | | | lumbar vertebra | | + + + + | 2022-09-22 00:00 | Pathological fracture of | [facility] | | | lumbar vertebra | | + + + + | 2022-09-22 18:19 | HYPOTHYROIDISM, | [facility] | | | UNSPECIFIED | | + + + + | 2022-09-22 18:19 | Essential (primary) | [facility] | | | hypertension | | + + + + | 2022-09-22 18:19 | UNSPECIFIED ATRIAL FLUTTER | [facility] | | | | | + + + + | 2022-09-22 18:19 | CHRONIC OBSTRUCTIVE | [facility] | | | PULMONARY DISEASE, | | | | UNSPECIFIED | | + + + + | 2022-09-22 18:19 | PATHOLOGICAL FRACTURE, | [facility] | | | OTHER SITE, INIT ENCNTR FOR | | | | | | + + + + | 2022-09-22 18:19 | WEAKNESS | [facility] | + + + + | 2022-09-22 18:19 | OTHER ROVING TELLER (CURRENT) | [facility] | | | DRUG THERAPY | | + + + + | 2022-09-22 18:19 | PERSONAL HISTORY OF | [facility] | | | NICOTINE DEPENDENCE | | + + + + | 2022-09-22 18:19 | ALLERGY STATUS TO NARCOTIC | [facility] | | | AGENT STATUS | | + + + + | 2022-09-22 18:19 | ALLERGY STATUS TO OTH | [facility] | | | DRUG/MEDS/BIOL SUBST STATUS | | | | | | + + + + | 2022-09-23 00:00 | Fracture of lumbar spine | [facility] | | | without spinal cord lesion | | + + + + Procedures [...] | (unknown) | | | | | Prmio | value) | unknown) | | | [...] 152.01 | lb | + + + +---------+ | 2022-09-23 00:00 | BMI | 28.7 | kg/m2 | + + + +---------+ | 2022-09-23 00:00 | height_metric | 154.94 | cm | + + + +---------+ | 2022-09-23 00:00 | height_standard | 61 | in | + + + +---------+ | 2022-09-23 00:00 | weight_metric | 68.95 | kg | + + + +---------+ | 2022-09-23 00:00 | weight_standard | 152 | lb | + + + +---------+ | 2022-09-23 00:00 | weight_standard | 152.01 | lb | + + + +---------+ | 2022-10-02 00:00 | BP_diastolic | 54 | mmHg | + + + +---------+ | 2022-10-02 00:00 | BP_systolic | 109 | mmHg | + + + +---------+ | 2022-10-02 00:00 | heart_rate | 103 | /min | + + + +---------+ | 2022-10-02 00:00 | o2_saturation | 92 | % | + + + +---------+ | 2022-10-02 00:00 | respiration_rate | 17 | /min | + + + +---------+ | 2022-10-02 00:00 | temperature_metric | 37.28 | C | | | | | | + + + +---------+ | 2022-10-02 00:00 | | 99.1 | F | | | temperature_standar | | | | | d | | | + + + +---------+"
--- OUTSIDE RECORDS SUMMARY | ~2022-10-03 | XMS | Continuity of Care Document ---
Demographics + + + | Address | [facility] [address] | | | [place] [address] | + + + | Preferred Language | Unknown | + + + | Marital Status | | + + + | Amish Affiliation | Unknown | + + + | Race | White | + + + | Ethnic Group | Not or | + + + Author + + + | Author | [place] | + + + | Organization | [facility] | + + + | Address | [address] | | | [place] [address] | + + + | Phone | | + + + Care Team Providers + + + + | Care Coding Compliance Specialist Name | Role | Phone | [...] | (no date) | Lisinopril | [facility] | (unknown) | | | | Hospital | | + + + + + | (no date) | Mild | [facility] | (unknown) | | | | Hospital | | + + + + + | (no date) | Rash | [facility] | (unknown) | | | | Hospital | | + + + + + | (no date) | Lisinopril | [facility] | (unknown) | | | | Hospital | | + + + + + | (no date) | Tachycardia | [facility] | (unknown) | | | | Hospital | | + + + + + | (no date) | Diltiazem | [facility] | (unknown) | | | | Hospital | | + + + + + | (no date) | Diltiazem | [facility] | (unknown) | | | | Hospital | | + + + + + | (no date) | Albuterol | [facility] | (unknown) | | | | Hospital | | + + + + + | (no date) | Oxycodone | [facility] | (unknown) | | | | Hospital | | + + + + + | (no date) | Albuterol | [facility] | (unknown) | | | | Hospital | | + + + + + | (no date) | Oxycodone | [facility] | (unknown) | | | | Hospital | | + + + + + | (no date) | Oxycodone | [facility] | (unknown) | | | | Hospital | | + + + + + | (no date) | Lisinopril | [facility] | (unknown) | | | | Hospital | | + + + + + | (no date) | Diltiazem | [facility] | (unknown) | | | | Hospital [...] + | (no date) | Albuterol | [facility] | (unknown) | | | | Hospital | | + + + + + Encounters No information. Functional Status No information. Immunizations No information. Medications + + + + | date | description | facility | + + + + | 2022-09-16 00:00 | Lidocaine | [facility] | + + + + | 2022-09-16 00:00 | Lidocaine | [facility] | + + + + | 2022-09-22 00:00 | ONDANSETRON | [facility] | + + + + | 2019-11-18 00:00 | APIXABAN | [facility] | + + + + | 2019-11-18 00:00 | APIXABAN | [facility] | + + + + | 2022-10-02 00:00 | APIXABAN | [facility] | + + + + | 2022 00:00 | DOXYCYCLINE HYCLATE | [facility] | + + + + | 2022 00:00 | DOXYCYCLINE HYCLATE | [facility] | + + + + | 2022-10-02 00:00 | TIOTROPIUM BR/OLODATEROL | [facility] | | | HCL | | + + + + | 2022 00:00 | DICLOXACILLIN SODIUM | [facility] | + + + + | 2022-09-16 00:00 | DICLOXACILLIN SODIUM | [facility] | + + + + | 2022-09-22 00:00 | DICLOXACILLIN SODIUM | [facility] | + + + + | 2017-07-28 00:00 | OMEPRAZOLE | [facility] | + + + + | 2017-07-28 00:00 | OMEPRAZOLE | [facility] | + + + + | 2022-10-02 00:00 | | [facility] | | | SULFAMETHOXAZOLE/TRIMETHOPR | | | | IM | | + + + + | 2022 00:00 | GABAPENTIN | [facility] | + + + + | 2022-09-16 00:00 | GABAPENTIN | [facility] | + + + + | 2022-09-22 00:00 | GABAPENTIN | [facility] | + + + + | 2022-10-02 00:00 | GABAPENTIN | [facility] | + + + + | 2019-11-18 00:00 | predniSONE | [facility] | + + + + | 2019-11-18 00:00 | predniSONE | [facility] | + + + + | 2022-10-02 00:00 | ACETAMINOPHEN | [facility] | + + + + | 2022-10-02 00:00 | | [facility] | | | CALCITONIN,SALMON,SYNTHETIC | | | | | | + + + + | 2022-02-04 00:00 | ASPIRIN | [facility] | + + + + | 2022 00:00 | ASPIRIN | [facility] | + + + + | 2022-09-16 00:00 | ASPIRIN | [facility] | + + + + | 2022-09-22 00:00 | ASPIRIN | [facility] | + + + + | 2022-10-02 00:00 | ASPIRIN | [facility] | + + + + | 2022 00:00 | Pregabalin | [facility] | + + + + | 2022-09-16 00:00 | Pregabalin | [facility] | + + + + | 2022-09-22 00:00 | Pregabalin | [facility] | + + + + | 2022-10-02 00:00 | Pregabalin | [facility] | + + + + | 2019-11-18 00:00 | DILTIAZEM HCL | [facility] | + + + + | 2019-11-18 00:00 | DILTIAZEM HCL | [facility] | + + + + | 2022-10-02 00:00 | Diclofenac Sodium | [facility] | + + + + | 2022-09-16 00:00 | HYDROCODONE | [facility] | | | BIT/ACETAMINOPHEN | | + + + + | 2022-09-16 00:00 | HYDROCODONE | [facility] | | | BIT/ACETAMINOPHEN | | + + + + | 2022-02-04 00:00 | OXYBUTYNIN CHLORIDE | [facility] | + + + + | 2022 00:00 | OXYBUTYNIN CHLORIDE | [facility] | + + + + | 2022-09-16 00:00 | OXYBUTYNIN CHLORIDE | [facility] | + + + + | 2022-09-22 00:00 | OXYBUTYNIN CHLORIDE | [facility] | + + + + | 2022-10-02 00:00 | OXYBUTYNIN CHLORIDE | [facility] | + + + + | 2022-02-04 00:00 | METOPROLOL SUCCINATE | [facility] | + + + + | 2022 00:00 | METOPROLOL SUCCINATE | [facility] | + + + + | 2022-09-16 00:00 | METOPROLOL SUCCINATE | [facility] | + + + + | 2022-09-22 00:00 | METOPROLOL SUCCINATE | [facility] | + + + + | 2022-10-02 00:00 | METOPROLOL TARTRATE | [facility] | + + + + | 2022-09-22 00:00 | MORPHINE SULFATE | [facility] | + + + + | 2022-09-22 00:00 | MORPHINE SULFATE | [facility] | + + + + | 2022-10-02 00:00 | MORPHINE SULFATE | [facility] | + + + + | 2022-10-02 00:00 | LEVOTHYROXINE SODIUM | [facility] | + + + + | 2022-02-04 00:00 | LEVOTHYROXINE SODIUM | [facility] | + + + + | 2022 00:00 | LEVOTHYROXINE SODIUM | [facility] | + + + + | 2022-09-16 00:00 | LEVOTHYROXINE SODIUM | [facility] | + + + + | 2022-09-22 00:00 | LEVOTHYROXINE SODIUM | [facility] | + + + + | 2022-02-04 00:00 | LOSARTAN POTASSIUM | [facility] | + + + + | 2022 00:00 | LOSARTAN POTASSIUM | [facility] | + + + + | 2022-09-16 00:00 | LOSARTAN POTASSIUM | [facility] | + + + + | 2022-09-22 00:00 | LOSARTAN POTASSIUM | [facility] | + + + + | 2022-10-02 00:00 | LOSARTAN POTASSIUM | [facility] | + + + + Problems + + + + | date | description | facility | + + + + | 2015-08-08 00:00 | Syncope | [facility] | + + + + | 2015-08-08 00:00 | Syncope | [facility] | + + + + | 2015-08-09 00:00 | Follow up | [facility] | + + + + | 2015-08-09 00:00 | Follow up | [facility] | + + + + | 2016-05-17 00:00 | Vomiting | [facility] | + + + + | 2016-05-17 00:00 | Vomiting | [facility] | + + + + | 2017-07-28 00:00 | Nonspecific chest pain | [facility] | + + + + | 2017-07-28 00:00 | Nonspecific chest pain | [facility] | + + + + | 2017-09-10 00:00 | Abdominal pain | [facility] | + + + + | 2017-09-10 00:00 | Abdominal pain | [facility] | + + + + | 2018-03-18 00:00 | Nonspecific abdominal pain | [facility] | | | | | + + + + | 2018-03-18 00:00 | Nonspecific abdominal pain | [facility] | | | | | + + + + | 2019-11-15 00:00 | Atrial flutter | [facility] | + + + + | 2019-11-15 00:00 | Atrial flutter | [facility] | + + + + | 2020-01-21 00:00 | Hematoma | [facility] | + + + + | 2020-01-21 00:00 | Hematoma | [facility] | + + + + | 2020-04-20 00:00 | Contusion of left wrist | [facility] | + + + + | 2020-04-20 00:00 | Contusion of left wrist | [facility] | + + + + | 2022-02-04 00:00 | Acute exacerbation of | [facility] | | | chronic obstructive | | | | pulmonary disease | | + + + + | 2022-02-04 00:00 | Acute exacerbation of | [facility] | | | chronic obstructive | | [...] + + + | 2022-07-21 23:44 | POLYMER SCIENTIST (CURRENT) USE OF | [facility] | | | ANTICOAGULANTS | | + + + + | 2022-07-21 23:44 | HORMONE REPLACEMENT | [facility] | | | THERAPY | | + + + + | 2022-07-21 23:44 | OTHER INTERMEDIATE (CURRENT) | [facility] | | | DRUG [...] | 2022-09-16 00:00 | Compression fracture | [facility] | + + + + | 2022-09-16 00:00 | Compression fracture | [facility] | + + + + | 2022-09-16 00:00 | Lung mass | [facility] | + + + + | 2022-09-16 00:00 | Lung mass | [facility] | + + + + | [...] + + | 2022-09-16 08:21 | OTHER POLYMER SCIENTIST (CURRENT) | [facility] | | | DRUG [...] 2022-09-22 00:00 | Pathological fracture of | [facility] | | | lumbar vertebra | | + + + + | 2022-09-22 00:00 | Pathological fracture of | [facility] | | | lumbar vertebra | | [...] + + | 2022-09-22 18:19 | OTHER POLYMER SCIENTIST (CURRENT) | [facility] | | | DRUG [...] 00:00 | Fracture of lumbar spine | [facility] | | | without spinal cord lesion [...]
[~2022-10-03 07:26] MED LIST changes: +CALCITONIN-SAL3.7 ML NAS; +DICLOFENAC SOD100 G1; +LEVOTHYROXINE175 MCG PO; +METOPROLOL TART25 MG PO; +STIOLTO RESPIMAT4 GM INH; +SULFAMETHOXAZO1 EAC1 PO
--- OUTSIDE RECORDS SUMMARY | 2022-10-03 07:31 | XMS ---
PreManage Notification: [employer] Lead Events No recent Security Events currently on file CRITERIA MET - [facility] - 2 Visits in 30 Days CARE PROVIDERS KAYLEN ROGERS Physician Financial Aid Officer Current PHONE: [phone] Soniya has no Care Guidelines for this patient. EJitendra VISIT COUNT (12 MO.) 6 [facility] TOTAL 6 NOTE: Visits indicate total known visits. ED/C VISIT TRACKING (12 MO.) 10/03/2022 07:27 [facility] TYPE: Emergency COMPLAINT: - CHRONIC PAIN 09/23/2022 03:22 [facility] TYPE: Emergency COMPLAINT: - BACK PAIN 09/22/2022 18:19 [facility] TYPE: Emergency COMPLAINT: - BACK PAIN DIAGNOSES: - Allergy status to narcotic agent - Allergy status to other drugs, medicaments and biological substances - Chronic obstructive pulmonary disease, unspecified - Essential (primary) hypertension - Hypothyroidism, unspecified - Other intermodal truck driver (current) drug therapy - Pathological fracture, other site, initial encounter for fracture - Personal history of nicotine dependence - Unspecified atrial flutter - Weakness 09/16/2022 08:21 [facility] TYPE: Emergency COMPLAINT: - BACK PAIN DIAGNOSES: - Allergy status to narcotic agent - Allergy status to other drugs, medicaments and biological substances - Chronic obstructive pulmonary disease, unspecified - Essential (primary) hypertension - Hormone replacement therapy - Low back pain, unspecified - Other halfway (current) drug therapy - Other nonspecific abnormal [...] disease, unspecified - Hormone replacement therapy - prison (current) use of anticoagulants - Other halfway (current) drug therapy - Personal history of [...] atrial flutter INPATIENT VISIT TRACKING (12 MO.) 09/25/2022 08:19 [facility] TYPE: Medical Surgical COMPLAINT: - LUMBAR FRACTURE,LUNG MASS WITH POSSIBLE BONY METS [email or web address]
[2022-10-03] MEDS ORDERED: FENTANYL1 EAC4 TD (08:11)
[2022-10-03 09:45] VITALS: BP 128/69
== END 2022-10-03 09:45 | disposition home or self-care (01) ==
LOC: ED 07:26
DX: G89.3 Neoplasm related pain (acute) (chronic) (principal); C79.51 Secondary malignant neoplasm of bone; J44.9 Chronic obstructive pulmonary disease, unspecified; I10 Essential (primary) hypertension; Z87.891 Personal history of nicotine dependence; Z88.5 Allergy status to narcotic agent; Z88.8 Allergy status to other drugs, medicaments and biological substances; Z79.899 Other long term (current) drug therapy; Z79.890 Hormone replacement therapy
CPT/HCPCS: 99284; A9270

== ENCOUNTER 2022-10-04 06:17 | Emergency (ER) | payer MEDICARE ==
[~2022-10-04] VITALS: Ht 154.9 cm; Wt 74.4 kg
--- OUTSIDE RECORDS SUMMARY | ~2022-10-04 | XMS | Continuity of Care Document ---
Demographics + + + | Address | [facility] [address] | | | [place] [address] | + + + | Preferred Language | Unknown | + + + | Marital Status | | + + + | Religion Affiliation | Unknown | + + + | Race | White | + + + | Ethnic Group | Not or | + + + Author + + + | Author | [facility] | + + + | Organization | [facility] | + + + | Address | [address] [facility] | | | [place] [address] | + + + | Phone | | + + + Care Team Providers + + + + | Care Director Sales Name | Role | Phone | + [...] | (no date) | Lisinopril | [facility] | (unknown) [facility] | | + + + + + | (no date) | Mild | [facility] (unknown) [facility] | | + + + + + | (no date) | Rash | [facility] | (unknown) | | | | Hospital | | + + + + + | (no date) | Lisinopril | [facility] | (unknown) | | | | [facility] | | + + + + + | (no date) | Tachycardia | [facility] | (unknown) | | | | Hospital | | + + + + + | (no date) | Diltiazem | [facility] | (unknown) | | | | [facility] | | + + + + + | (no date) | Diltiazem | [facility] | (unknown) | | | | [facility] | | + + + + + | (no date) | Albuterol | [facility] | (unknown) | | | | [facility] | | + + + + + | (no date) | Oxycodone | [facility] (unknown) [facility] | | + + + + + | (no date) | Albuterol | [facility] | | + + + + + | (no date) | Oxycodone | [facility] (unknown) | | | | [facility] | | + + + + + | (no date) | Oxycodone | [facility] ([facility] | | + + + + + | (no date) | Lisinopril | [facility] | | + + + + + | (no date) | Diltiazem | [facility] | (unknown) | | | | [facility] | | + + + + + | (no date) | lisinopril | [facility] | (unknown) | + + + + + | (no date) | oxycodone | [facility] | (unknown) | + + + + + | (no date) | albuterol | [facility] | (unknown) | + + + + + | (no date) | diltiazem | [facility] | (unknown) | + + + + + | (no date) | Albuterol [facility] | | + + + + + Encounters No information. Functional Status No information. Immunizations No information. Medications + + + + | date | description | facility | + + + + | 2022-09-16 00:00 | Lidocaine | [facility] | + + + + | 2022-09-16 00:00 | Lidocaine | [facility] | + + + + | 2022-09-22 00:00 | ONDANSETRON | [facility] | + + + + | 2022-09-22 00:00 | ONDANSETRON | [facility] | + + + + | 2019-11-18 00:00 | APIXABAN | [facility] | + + + + | 2019-11-18 00:00 | APIXABAN | [facility] | + + + + | 2022-10-02 00:00 | APIXABAN | [facility] | + + + + | 2022-10-03 00:00 | APIXABAN | [facility] | + + + + | 2022 00:00 | DOXYCYCLINE HYCLATE | [facility] | + + + + | 2022 00:00 | DOXYCYCLINE HYCLATE | [facility] | + + + + | 2022-10-02 00:00 | TIOTROPIUM BR/OLODATEROL | [facility] | | | HCL | | + + + + | 2022-10-03 00:00 | TIOTROPIUM BR/OLODATEROL | [facility] | | | HCL | | + + + + | 2022 00:00 | DICLOXACILLIN SODIUM | [facility] | + + + + | 2022-09-16 00:00 | DICLOXACILLIN SODIUM | [facility] | + + + + | 2022-09-22 00:00 | DICLOXACILLIN SODIUM | [facility] | + + + + | 2017-07-28 00:00 | OMEPRAZOLE | [facility] | + + + + | 2017-07-28 00:00 | OMEPRAZOLE | [facility] | + + + + | 2022-10-02 00:00 | | [facility] | | | SULFAMETHOXAZOLE/TRIMETHOPR | | | | IM | | + + + + | 2022-10-02 00:00 | | [facility] | | | SULFAMETHOXAZOLE/TRIMETHOPR | | | | IM | | + + + + | 2022 00:00 | GABAPENTIN | [facility] | + + + + | 2022-09-16 00:00 | GABAPENTIN | [facility] | + + + + | 2022-09-22 00:00 | GABAPENTIN | [facility] | + + + + | 2022-10-02 00:00 | GABAPENTIN | [facility] | + + + + | 2022-10-03 00:00 | GABAPENTIN | [facility] | + + + + | 2019-11-18 00:00 | predniSONE | [facility] | + + + + | 2019-11-18 00:00 | predniSONE | [facility] | + + + + | 2022-10-02 00:00 | ACETAMINOPHEN | [facility] | + + + + | 2022-10-03 00:00 | ACETAMINOPHEN | [facility] | + + + + | 2022-10-02 00:00 | | [facility] | | | CALCITONIN,SALMON,SYNTHETIC | | | | | | + + + + | 2022-10-03 00:00 | | [facility] | | | CALCITONIN,SALMON,SYNTHETIC | | | | | | + + + + | 2022-02-04 00:00 | ASPIRIN | [facility] | + + + + | 2022 00:00 | ASPIRIN | [facility] | + + + + | 2022-09-16 00:00 | ASPIRIN | [facility] | + + + + | 2022-09-22 00:00 | ASPIRIN | [facility] | + + + + | 2022-10-02 00:00 | ASPIRIN | [facility] | + + + + | 2022-10-03 00:00 | ASPIRIN | [facility] | + + + + | 2022 00:00 | Pregabalin | [facility] | + + + + | 2022-09-16 00:00 | Pregabalin | [facility] | + + + + | 2022-09-22 00:00 | Pregabalin | [facility] | + + + + | 2022-10-02 00:00 | Pregabalin | [facility] | + + + + | 2022-10-02 00:00 | Pregabalin | [facility] | + + + + | 2022-10-03 00:00 | FENTANYL (12 MCG/HR) | [facility] | + + + + | 2019-11-18 00:00 | DILTIAZEM HCL | [facility] | + + + + | 2019-11-18 00:00 | DILTIAZEM HCL | [facility] | + + + + | 2022-10-02 00:00 | Diclofenac Sodium | [facility] | + + + + | 2022-10-03 00:00 | Diclofenac Sodium | [facility] | + + + + | 2022-09-16 00:00 | HYDROCODONE | [facility] | | | BIT/ACETAMINOPHEN | | + + + + | 2022-09-16 00:00 | HYDROCODONE | [facility] | | | BIT/ACETAMINOPHEN | | + + + + | 2022-02-04 00:00 | OXYBUTYNIN CHLORIDE | [facility] | + + + + | 2022 00:00 | OXYBUTYNIN CHLORIDE | [facility] | + + + + | 2022-09-16 00:00 | OXYBUTYNIN CHLORIDE | [facility] | + + + + | 2022-09-22 00:00 | OXYBUTYNIN CHLORIDE | [facility] | + + + + | 2022-10-02 00:00 | OXYBUTYNIN CHLORIDE | [facility] | + + + + | 2022-10-03 00:00 | OXYBUTYNIN CHLORIDE | [facility] | + + + + | 2022-02-04 00:00 | METOPROLOL SUCCINATE | [facility] | + + + + | 2022 00:00 | METOPROLOL SUCCINATE | [facility] | + + + + | 2022-09-16 00:00 | METOPROLOL SUCCINATE | [facility] | + + + + | 2022-09-22 00:00 | METOPROLOL SUCCINATE | [facility] | + + + + | 2022-10-02 00:00 | METOPROLOL TARTRATE | [facility] | + + + + | 2022-10-03 00:00 | METOPROLOL TARTRATE | [facility] | + + + + | 2022-09-22 00:00 | MORPHINE SULFATE | [facility] | + + + + | 2022-09-22 00:00 | MORPHINE SULFATE | [facility] | + + + + | 2022-10-02 00:00 | MORPHINE SULFATE | [facility] | + + + + | 2022-10-03 00:00 | MORPHINE SULFATE | [facility] | + + + + | 2022-10-02 00:00 | LEVOTHYROXINE SODIUM | [facility] | + + + + | 2022-10-03 00:00 | LEVOTHYROXINE SODIUM | [facility] | + + + + | 2022-02-04 00:00 | LEVOTHYROXINE SODIUM | [facility] | + + + + | 2022 00:00 | LEVOTHYROXINE SODIUM | [facility] | + + + + | 2022-09-16 00:00 | LEVOTHYROXINE SODIUM | [facility] | + + + + | 2022-09-22 00:00 | LEVOTHYROXINE SODIUM | [facility] | + + + + | 2022-02-04 00:00 | LOSARTAN POTASSIUM | [facility] | + + + + | 2022 00:00 | LOSARTAN POTASSIUM | [facility] | + + + + | 2022-09-16 00:00 | LOSARTAN POTASSIUM | [facility] | + + + + | 2022-09-22 00:00 | LOSARTAN POTASSIUM | [facility] | + + + + | 2022-10-02 00:00 | LOSARTAN POTASSIUM | [facility] | + + + + | 2022-10-03 00:00 | LOSARTAN POTASSIUM | [facility] | + + + + Problems + + + + | date | description | facility | + + + + | 2015-08-08 00:00 | Syncope | [facility] | + + + + | 2015-08-08 00:00 | Syncope | [facility] | + + + + | 2015-08-09 00:00 | Follow up | [facility] | + + + + | 2015-08-09 00:00 | Follow up | [facility] | + + + + | 2016-05-17 00:00 | Vomiting | [facility] | + + + + | 2016-05-17 00:00 | Vomiting | [facility] | + + + + | 2017-07-28 00:00 | Nonspecific chest pain | [facility] | + + + + | 2017-07-28 00:00 | Nonspecific chest pain | [facility] | + + + + | 2017-09-10 00:00 | Abdominal pain | [facility] | + + + + | 2017-09-10 00:00 | Abdominal pain | [facility] | + + + + | 2018-03-18 00:00 | Nonspecific abdominal pain | [facility] | | | | | + + + + | 2018-03-18 00:00 | Nonspecific abdominal pain | [facility] | | | | | + + + + | 2019-11-15 00:00 | Atrial flutter | [facility] | + + + + | 2019-11-15 00:00 | Atrial flutter | [facility] | + + + + | 2020-01-21 00:00 | Hematoma | [facility] | + + + + | 2020-01-21 00:00 | Hematoma | [facility] | + + + + | 2020-04-20 00:00 | Contusion of left wrist | [facility] | + + + + | 2020-04-20 00:00 | Contusion of left wrist | [facility] | + + + + | 2022-02-04 00:00 | Acute exacerbation of | [facility] | | | chronic obstructive | | | | pulmonary disease | | + + + + | 2022-02-04 00:00 | Acute exacerbation of | [facility] | | | chronic obstructive [...] + + + | 2022-07-21 23:44 | [facility] (CURRENT) USE OF | [facility] | | | ANTICOAGULANTS | | + + + + | 2022-07-21 23:44 | HORMONE REPLACEMENT | [facility] | | | THERAPY | | + + + + | 2022-07-21 23:44 | OTHER ACCESS REPRESENTATIVE (CURRENT) | [facility] | | | DRUG [...] | 2022-09-16 00:00 | Compression fracture | [facility] | + + + + | 2022-09-16 00:00 | Compression fracture | [facility] | + + + + | 2022-09-16 00:00 | Lung mass | [facility] | + + + + | 2022-09-16 00:00 | Lung mass | [facility] | + + + + [...] + + | 2022-09-16 08:21 | OTHER ACCESS REPRESENTATIVE (CURRENT) | [facility] | | | DRUG [...] 2022-09-22 00:00 | Pathological fracture of | [facility] | | | lumbar vertebra | | + + + + | 2022-09-22 00:00 | Pathological fracture of | [facility] | | | lumbar vertebra | [...] + + | 2022-09-22 18:19 | OTHER ACCESS REPRESENTATIVE (CURRENT) | [facility] | | | DRUG [...] 00:00 | Fracture of lumbar spine | [facility] | | | without spinal cord lesion | | + + + + | 2022-09-23 00:00 | Fracture of lumbar spine | [facility] | | | without spinal cord lesion | | + + + + | 2022-09-25 08:19 | 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 | | + + + + | 2022-09-25 08:19 | 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 | | + + + + | 2022-09-25 08:19 | 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 | | + + + + | 2022-09-25 08:19 | Essential (primary) | [facility] | | | hypertension | | + + + + | 2022-09-25 08:19 | UNSPECIFIED ATRIAL FLUTTER | [facility] | | | | | + + + + | 2022-09-25 08:19 | HYPOTENSION, UNSPECIFIED | [facility] | + + + + | 2022-09-25 08:19 | CHRONIC OBSTRUCTIVE | [facility] | | | PULMONARY DISEASE W (ACUTE) | | | | EX | | + + + + | 2022-09-25 08:19 | CONSTIPATION, UNSPECIFIED | [facility] | + + + + | 2022-09-25 08:19 | OTHER SPECIFIED DISEASES | [facility] | | | OF LIVER | | + + + + | 2022-09-25 08:19 | AGE-RELATED OSTEOPOROSIS | [facility] | | | W/O CURRENT PATHOLOGICAL | | + + + + | 2022-09-25 08:19 | OTHER NONSPECIFIC ABNORMAL | [facility] | | | FINDING OF LUNG FIELD | | + + + + | 2022-09-25 08:19 | UNSP FRACTURE OF UNSP | [facility] | | | LUMBAR VERTEBRA, INIT FOR | | | | CLOS FX | | + + + + | 2022-09-25 08:19 | UNSP FRACTURE OF FOURTH | [facility] | | | LUMBAR VERTEBRA, INIT FOR | | + + + + | 2022-09-25 08:19 | CONTUSION OF LEFT WRIST, | [facility] | | | INITIAL ENCOUNTER | | + + + + | 2022-09-25 08:19 | EXPOSURE TO OTHER | [facility] | | | SPECIFIED FACTORS, INITIAL | | | | ENCOU | | + + + + | 2022-09-25 08:19 | ENCOUNTER FOR PALLIATIVE | [facility] | | | CARE | | + + + + | 2022-09-25 08:19 | BODY MASS INDEX (BMI) | [facility] | | | 20.0-20.9, ADULT | | + + + + | 2022-09-25 08:19 | [facility] (CURRENT) USE OF | [facility] | | | ANTICOAGULANTS | | + + + + | 2022-09-25 08:19 | HORMONE REPLACEMENT | [facility] | | | THERAPY | | + + + + | 2022-09-25 08:19 | [facility] (CURRENT) USE OF | [facility] | | | OPIATE ANALGESIC | | + + + + | 2022-09-25 08:19 | ALLERGY STATUS TO NARCOTIC | [facility] | | | AGENT STATUS | | + + + + | 2022-09-25 08:19 | ALLERGY STATUS TO OTH | [facility] | | | DRUG/MEDS/BIOL SUBST STATUS | | | | | | + + + + | 2022-09-25 08:19 | ACQUIRED ABSENCE OF OTHER | [facility] | | | SPECIFIED PARTS OF DIGES | | + + + + | 2022-10-03 00:00 | Neoplasm related pain | [facility] | + + + + Procedures No [...] | | + + + +---------+ | 2022-10-03 00:00 | BMI | 31.2 | kg/m2 | + + + +---------+ | 2022-10-03 00:00 | BP_diastolic | 69 | mmHg | + + + +---------+ | 2022-10-03 00:00 | BP_systolic | 128 | mmHg | + + + +---------+ | 2022-10-03 00:00 | heart_rate | 67 | /min | + + + +---------+ | 2022-10-03 00:00 | height_metric | 154.94 | cm | + + + +---------+ | 2022-10-03 00:00 | height_standard | 61 | in | + + + +---------+ | 2022-10-03 00:00 | o2_saturation | 97 | % | + + + +---------+ | 2022-10-03 00:00 | respiration_rate | 16 | /min | + + + +---------+ | 2022-10-03 00:00 | temperature_metric | 36.72 | C | | | | | | + + + +---------+ | 2022-10-03 00:00 | | 98.1 | F | | | temperature_standar | | | | | d | | | + + + +---------+ | 2022-10-03 00:00 | weight_metric | 74.8 | kg | + + + +---------+ | 2022-10-03 00:00 | weight_standard | 164.91 | lb | + + + +---------+"
--- OUTSIDE RECORDS SUMMARY | ~2022-10-04 | XMS | Continuity of Care Document ---
Demographics + + + | Address | [facility] [address] | | | [place] [address] | + + + | Preferred Language | Unknown | + + + | Marital Status | | + + + | Mormon Affiliation | Unknown | + + + | Race | White | + + + | Ethnic Group | Not or | + + + Author + + + | Author | [facility] | + + + | Organization | [facility] | + + + | Address | [address] | | | [place] [address] | + + + | Phone | | + + + Care Team Providers + + + + | Care Typewriter Ribbon Winder Name | Role | Phone | + [...] | (no date) | Lisinopril | [facility] | (unknown) | | | | [facility] | | + + + + + | (no date) | Mild | [facility] | (unknown) | | | | Hospital | | + + + + + | (no date) | Rash | [facility] | (unknown) | | | | Hospital | | + + + + + | (no date) | Lisinopril | [facility] | (unknown) | | | | Hospital | | + + + + + | (no date) | Tachycardia | [facility] | (unknown) | | | | Hospital | | + + + + + | (no date) | Diltiazem | [facility] | (unknown) | | | | Hospital | | + + + + + | (no date) | Diltiazem | [facility] | (unknown) | | | | Hospital | | + + + + + | (no date) | Albuterol | [facility] | (unknown) | | | | Hospital | | + + + + + | (no date) | Oxycodone | [facility] | (unknown) | | | | Hospital | | + + + + + | (no date) | Albuterol | [facility] | (unknown) | | | | [facility] | | + + + + + | (no date) | Oxycodone | [facility] | (unknown) | | | | Hospital | | + + + + + | (no date) | Oxycodone | [facility] | (unknown) | | | | Hospital | | + + + + + | (no date) | Lisinopril | [facility] | (unknown) | | | | Hospital | | + + + + + | (no date) | Diltiazem | [facility] | (unknown) | | | | Hospital [...] | (no date) | Al[facility]erol [facility] | | + + + + + Encounters No information. Functional Status No information. Immunizations No information. Medications + + + + | date | description | facility | + + + + | 2022-09-16 00:00 | Lidocaine | [facility] | + + + + | 2022-09-16 00:00 | Lidocaine | [facility] | + + + + | 2022-09-22 00:00 | ONDANSETRON | [facility] | + + + + | 2022-09-22 00:00 | ONDANSETRON | [facility] | + + + + | 2019-11-18 00:00 | APIXABAN | [facility] | + + + + | 2019-11-18 00:00 | APIXABAN | [facility] | + + + + | 2022-10-02 00:00 | APIXABAN | [facility] | + + + + | 2022-10-03 00:00 | APIXABAN | [facility] | + + + + | 2022 00:00 | DOXYCYCLINE HYCLATE | [facility] | + + + + | 2022 00:00 | DOXYCYCLINE HYCLATE | [facility] | + + + + | 2022-10-02 00:00 | TIOTROPIUM BR/OLODATEROL | [facility] | | | HCL | | + + + + | 2022-10-03 00:00 | TIOTROPIUM BR/OLODATEROL | [facility] | | | HCL | | + + + + | 2022 00:00 | DICLOXACILLIN SODIUM | [facility] | + + + + | 2022-09-16 00:00 | DICLOXACILLIN SODIUM | [facility] | + + + + | 2022-09-22 00:00 | DICLOXACILLIN SODIUM | [facility] | + + + + | 2017-07-28 00:00 | OMEPRAZOLE | [facility] | + + + + | 2017-07-28 00:00 | OMEPRAZOLE | [facility] | + + + + | 2022-10-02 00:00 | | [facility] | | | SULFAMETHOXAZOLE/TRIMETHOPR | | | | IM | | + + + + | 2022-10-02 00:00 | | [facility] | | | SULFAMETHOXAZOLE/TRIMETHOPR | | | | IM | | + + + + | 2022 00:00 | GABAPENTIN | [facility] | + + + + | 2022-09-16 00:00 | GABAPENTIN | [facility] | + + + + | 2022-09-22 00:00 | GABAPENTIN | [facility] | + + + + | 2022-10-02 00:00 | GABAPENTIN | [facility] | + + + + | 2022-10-03 00:00 | GABAPENTIN | [facility] | + + + + | 2019-11-18 00:00 | predniSONE | [facility] | + + + + | 2019-11-18 00:00 | predniSONE | [facility] | + + + + | 2022-10-02 00:00 | ACETAMINOPHEN | [facility] | + + + + | 2022-10-03 00:00 | ACETAMINOPHEN | [facility] | + + + + | 2022-10-02 00:00 | | [facility] | | | CALCITONIN,SALMON,SYNTHETIC | | | | | | + + + + | 2022-10-03 00:00 | | [facility] | | | CALCITONIN,SALMON,SYNTHETIC | | | | | | + + + + | 2022-02-04 00:00 | ASPIRIN | [facility] | + + + + | 2022 00:00 | ASPIRIN | [facility] | + + + + | 2022-09-16 00:00 | ASPIRIN | [facility] | + + + + | 2022-09-22 00:00 | ASPIRIN | [facility] | + + + + | 2022-10-02 00:00 | ASPIRIN | [facility] | + + + + | 2022-10-03 00:00 | ASPIRIN | [facility] | + + + + | 2022 00:00 | Pregabalin | [facility] | + + + + | 2022-09-16 00:00 | Pregabalin | [facility] | + + + + | 2022-09-22 00:00 | Pregabalin | [facility] | + + + + | 2022-10-02 00:00 | Pregabalin | [facility] | + + + + | 2022-10-02 00:00 | Pregabalin | [facility] | + + + + | 2022-10-03 00:00 | FENTANYL (12 MCG/HR) | [facility] | + + + + | 2019-11-18 00:00 | DILTIAZEM HCL | [facility] | + + + + | 2019-11-18 00:00 | DILTIAZEM HCL | [facility] | + + + + | 2022-10-02 00:00 | Diclofenac Sodium | [facility] | + + + + | 2022-10-03 00:00 | Diclofenac Sodium | [facility] | + + + + | 2022-09-16 00:00 | HYDROCODONE | [facility] | | | BIT/ACETAMINOPHEN | | + + + + | 2022-09-16 00:00 | HYDROCODONE | [facility] | | | BIT/ACETAMINOPHEN | | + + + + | 2022-02-04 00:00 | OXYBUTYNIN CHLORIDE | [facility] | + + + + | 2022 00:00 | OXYBUTYNIN CHLORIDE | [facility] | + + + + | 2022-09-16 00:00 | OXYBUTYNIN CHLORIDE | [facility] | + + + + | 2022-09-22 00:00 | OXYBUTYNIN CHLORIDE | [facility] | + + + + | 2022-10-02 00:00 | OXYBUTYNIN CHLORIDE | [facility] | + + + + | 2022-10-03 00:00 | OXYBUTYNIN CHLORIDE | [facility] | + + + + | 2022-02-04 00:00 | METOPROLOL SUCCINATE | [facility] | + + + + | 2022 00:00 | METOPROLOL SUCCINATE | [facility] | + + + + | 2022-09-16 00:00 | METOPROLOL SUCCINATE | [facility] | + + + + | 2022-09-22 00:00 | METOPROLOL SUCCINATE | [facility] | + + + + | 2022-10-02 00:00 | METOPROLOL TARTRATE | [facility] | + + + + | 2022-10-03 00:00 | METOPROLOL TARTRATE | [facility] | + + + + | 2022-09-22 00:00 | MORPHINE SULFATE | [facility] | + + + + | 2022-09-22 00:00 | MORPHINE SULFATE | [facility] | + + + + | 2022-10-02 00:00 | MORPHINE SULFATE | [facility] | + + + + | 2022-10-03 00:00 | MORPHINE SULFATE | [facility] | + + + + | 2022-10-02 00:00 | LEVOTHYROXINE SODIUM | [facility] | + + + + | 2022-10-03 00:00 | LEVOTHYROXINE SODIUM | [facility] | + + + + | 2022-02-04 00:00 | LEVOTHYROXINE SODIUM | [facility] | + + + + | 2022 00:00 | LEVOTHYROXINE SODIUM | [facility] | + + + + | 2022-09-16 00:00 | LEVOTHYROXINE SODIUM | [facility] | + + + + | 2022-09-22 00:00 | LEVOTHYROXINE SODIUM | [facility] | + + + + | 2022-02-04 00:00 | LOSARTAN POTASSIUM | [facility] | + + + + | 2022 00:00 | LOSARTAN POTASSIUM | [facility] | + + + + | 2022-09-16 00:00 | LOSARTAN POTASSIUM | [facility] | + + + + | 2022-09-22 00:00 | LOSARTAN POTASSIUM | [facility] | + + + + | 2022-10-02 00:00 | LOSARTAN POTASSIUM | [facility] | + + + + | 2022-10-03 00:00 | LOSARTAN POTASSIUM | [facility] | + + + + Problems + + + + | date | description | facility | + + + + | 2015-08-08 00:00 | Syncope | [facility] | + + + + | 2015-08-08 00:00 | Syncope | [facility] | + + + + | 2015-08-09 00:00 | Follow up | [facility] | + + + + | 2015-08-09 00:00 | Follow up | [facility] | + + + + | 2016-05-17 00:00 | Vomiting | [facility] | + + + + | 2016-05-17 00:00 | Vomiting | [facility] | + + + + | 2017-07-28 00:00 | Nonspecific chest pain | [facility] | + + + + | 2017-07-28 00:00 | Nonspecific chest pain | [facility] | + + + + | 2017-09-10 00:00 | Abdominal pain | [facility] | + + + + | 2017-09-10 00:00 | Abdominal pain | [facility] | + + + + | 2018-03-18 00:00 | Nonspecific abdominal pain | [facility] | | | | | + + + + | 2018-03-18 00:00 | Nonspecific abdominal pain | [facility] | | | | | + + + + | 2019-11-15 00:00 | Atrial flutter | [facility] | + + + + | 2019-11-15 00:00 | Atrial flutter | [facility] | + + + + | 2020-01-21 00:00 | Hematoma | [facility] | + + + + | 2020-01-21 00:00 | Hematoma | [facility] | + + + + | 2020-04-20 00:00 | Contusion of left wrist | [facility] | + + + + | 2020-04-20 00:00 | Contusion of left wrist | [facility] | + + + + | 2022-02-04 00:00 | Acute exacerbation of | [facility] | | | chronic obstructive | | | | pulmonary disease | | + + + + | 2022-02-04 00:00 | Acute exacerbation of | [facility] | | | chronic obstructive | [...] + + + | 2022-07-21 23:44 | PENITENTIARY (CURRENT) USE OF | [facility] | | | ANTICOAGULANTS | | + + + + | 2022-07-21 23:44 | HORMONE REPLACEMENT | [facility] | | | THERAPY | | + + + + | 2022-07-21 23:44 | OTHER RV REPAIRER (CURRENT) | [facility] | | | DRUG [...] | 2022-09-16 00:00 | Compression fracture | [facility] | + + + + | 2022-09-16 00:00 | Compression fracture | [facility] | + + + + | 2022-09-16 00:00 | Lung mass | [facility] | + + + + | 2022-09-16 00:00 | Lung mass | [facility] | + + + + | [...] + + | 2022-09-16 08:21 | OTHER RV REPAIRER (CURRENT) | [facility] | | | DRUG [...] 2022-09-22 00:00 | Pathological fracture of | [facility] | | | lumbar vertebra | | + + + + | 2022-09-22 00:00 | Pathological fracture of | [facility] | | | lumbar vertebra | [...] + + | 2022-09-22 18:19 | OTHER RV REPAIRER (CURRENT) | [facility] | | | DRUG [...] 00:00 | Fracture of lumbar spine | [facility] | | | without spinal cord lesion | | + + + + | 2022-09-23 00:00 | Fracture of lumbar spine | [facility] | | | without spinal cord [...] + + + | 2022-09-25 08:19 | PENITENTIARY (CURRENT) USE OF | [facility] | | | ANTICOAGULANTS | | + + + + | 2022-09-25 08:19 | HORMONE REPLACEMENT | [facility] | | | THERAPY | | + + + + | 2022-09-25 08:19 | PENITENTIARY (CURRENT) USE OF | [facility] | | [...] 2022-10-03 00:00 | Neoplasm related pain | [facility] | + + + + Procedures [...]
[~2022-10-04 06:17] MED LIST changes: +FENTANYL1 EAC4 TD
--- OUTSIDE RECORDS SUMMARY | 2022-10-04 06:19 | XMS ---
PreManage Notification: TONY LUA [employer] Events No recent Security Events currently on file CRITERIA MET - 6 ED Visits in 6 Months - [facility] - 2 Visits in 30 Days CARE PROVIDERS KAYLEN ROGERS Physician Current PHONE: [phone] Soniya has no Care Guidelines for this patient. Babatunde. VISIT COUNT (12 MO.) [address] [place] [address] TOTAL 7 NOTE: Visits indicate total known visits. ED/C VISIT TRACKING (12 MO.) 10/04/2022 06:17 [facility] TYPE: Emergency COMPLAINT: - CHEST TIGHTNESS 10/03/2022 07:27 [facility] TYPE: Emergency [...] (primary) hypertension - Hypothyroidism, unspecified - Other intermediate frame tender (current) drug therapy - Pathological fracture, other [...] disease, unspecified - Hormone replacement therapy - terminal superintendent (current) use of anticoagulants - Other halfway [...] INPATIENT VISIT TRACKING (12 MO.) 09/25/2022 08:19 [facility] TYPE: Medical Surgical COMPLAINT: - LUMBAR FRACTURE,LUNG MASS WITH POSSIBLE BONY METS DIAGNOSES: - Acquired absence of other specified parts of digestive tract - Acquired absence of other specified parts of digestive tract - Age-related osteoporosis without current pathological fracture - Age-related osteoporosis without current pathological fracture - Allergy status to narcotic agent - Allergy status to narcotic agent - Allergy status to other drugs, medicaments and biological substances - Allergy status to other drugs, medicaments and biological substances - Body mass index [BMI] 20.0-20.9, adult - Body mass index [BMI] 20.0-20.9, adult - Chronic obstructive pulmonary disease with (acute) exacerbation - Chronic obstructive pulmonary disease with (acute) exacerbation - Constipation, unspecified - Constipation, unspecified - Contusion of left wrist, initial encounter - Contusion of left wrist, initial encounter - Encounter for palliative care - Encounter for palliative care - Essential (primary) hypertension - Essential (primary) hypertension - Exposure to other specified factors, initial encounter - Exposure to other specified factors, initial encounter - Hormone replacement therapy - Hormone replacement therapy - Hypotension, unspecified - Hypotension, unspecified - terminal superintendent (current) use of anticoagulants - senior care (current) use of anticoagulants - terminal superintendent (current) use of opiate analgesic - senior care (current) use of opiate analgesic - Mild protein-calorie malnutrition - Mild protein-calorie malnutrition - Other nonspecific abnormal finding of lung field - Other nonspecific abnormal finding of lung field - Other specified diseases of liver - Other specified diseases of liver - Postprocedural hypothyroidism - Postprocedural hypothyroidism - Secondary malignant neoplasm of bone - Secondary malignant neoplasm of bone - Unspecified atrial flutter - Unspecified atrial flutter - Unspecified fracture of fourth lumbar vertebra, initial encounter for closed fracture - Unspecified fracture of fourth lumbar vertebra, initial encounter for closed fracture - Unspecified fracture of unspecified lumbar vertebra, initial encounter for closed fracture [email or web address]
[2022-10-04 13:14] VITALS: BP 122/78
--- NOTE | 2022-10-06 06:14 | EKG ---
[facility] [address] [facility] [place] [address] Signed Sinus rhythm with short [place] Low voltage QRS Cannot rule out Anteroseptal infarct (cited on or before 15-NOV-2019) Abnormal ECG When compared with ECG of 15-NOV-2019 12:41, Sinus rhythm has replaced Atrial flutter QRS duration has decreased Questionable change in initial forces of Anterior leads Confirmed by JEFFRY JOSEPH MD ([id number]) on 10/06/2022 6:14:08 AM Electronically Signed By: JEFFRY JOSEPH 10/06/22 0614 PATIENT NAME: TONY LUA Electrocardiogram DATE OF : 41 PHYSICIAN: JEFFRY JOSEPH REPORT #: [id number] REPORT IS CONFIDENTIAL AND NOT TO BE RELEASED WITHOUT AUTHORIZATION
--- NOTE | 2022-10-06 06:16 | EKG ---
[facility] [address] [facility] [place] [address] Signed Atrial flutter with variable AV block with premature ventricular or aberrantly conducted complexes Rightward axis Low voltage QRS Cannot rule out Anterior infarct (cited on or before 15-NOV-2019) Abnormal ECG When compared with ECG of 04-OCT-2022 06:18, (Unconfirmed) Atrial flutter has replaced Sinus rhythm Confirmed by JEFFRY JOSEPH MD ([id number]) on 10/06/2022 6:16:40 AM Electronically Signed By: JEFFRY JOSEPH 10/06/22 0616 PATIENT NAME: TONY LUA Electrocardiogram DATE OF : 41 PHYSICIAN: JEFFRY JOSEPH REPORT #: [id number] REPORT IS CONFIDENTIAL AND NOT TO BE RELEASED WITHOUT AUTHORIZATION
== END 2022-10-04 13:14 | disposition short-term general hospital (02) ==
LOC: ED 06:17
DX: R07.9 Chest pain, unspecified (principal); I48.92 Unspecified atrial flutter; I10 Essential (primary) hypertension; J44.9 Chronic obstructive pulmonary disease, unspecified; Z79.01 Long term (current) use of anticoagulants; Z87.891 Personal history of nicotine dependence; Z88.8 Allergy status to other drugs, medicaments and biological substances; Z79.899 Other long term (current) drug therapy
CPT/HCPCS: 36415; 71045; 71260; 80053; 81001; 83880; 84484; 85025; 93005; 93010; 99285 25; J1650; Q9967